=== PATIENT | male | born 1950 | race American Indian/Alaskan Native ===

== ENCOUNTER 2016-08-27 10:24 | Outpatient (CLI) | payer MEDICARE ==
--- NOTE | 2016-08-27 11:34 | XRay Report ---
LUMBOSACRAL SPINE, FIVE VIEWS: HISTORY: Back pain, radiculopathy. Mild osteopenia. No evidence for compression deformity, subluxation or bone lesion. Bridging osteophytes are identified along the left lateral border of L1-2, right lateral border of L3-4 and left lateral border of L4-5. The disc spaces are normal height. Oblique images demonstrate no evidence for pars defect or high-grade neural foraminal narrowing. Mild diffuse facet arthropathy is suspected. IMPRESSION: Osteopenia. Lumbar spondylosis as described. No acute process is appreciated.
--- NOTE | 2016-08-27 11:35 | XRay Report ---
SACRUM AND COCCYX: History: Pain, radiculopathy. Osteopenia is evident. Sacrum and coccyx are intact. No bony destruction or fracture is appreciated. There is suggestion of fusion of the SI joints could be related to spondyloarthropathy. IMPRESSION: Osteopenia. No sacral defect is appreciated.
== END 2016-08-27 10:25 | disposition home or self-care (01) ==
LOC: XRAY 10:24
PROVIDERS: ATTEND Surgery Vascular Surgery
DX: M47.896 Other spondylosis, lumbar region (principal); T82.898A Other specified complication of vascular prosthetic devices, implants and grafts, initial encounter; M25.78 Osteophyte, vertebrae; M85.88 Other specified disorders of bone density and structure, other site
CPT/HCPCS: 72110; 72220

== ENCOUNTER 2019-02-05 08:01 | Emergency (ER) | payer MEDICARE ==
--- NOTE | 2019-02-05 09:06 | Emergency Department Report ---
ED General Adult HPI - General Chief complaint: Medical Clearance Stated complaint: HEMMORRHAGE/DIALYSIS Time Seen by Provider: 02/05/19 08:57 Source: patient, EMS Mode of arrival: Stretcher Limitations: No Limitations - History of Present Illness Initial comments: 68-year-old male presents to ED with bleeding from his dialysis fistula. Patient states that there was a scab present on top of his fistula from where his physician recently removed sutures. Patient states the scab came off this morning in and they were unable to control bleeding at the dialysis center, so pressure dressing was applied and patient transported to the ED. Patient was l ast dialyzed 2 days ago. -: This morning Location: left, upper extremity Severity scale (0 -10): 0 Consistency: constant Improves with: none Worsens with: none Associated Symptoms: denies other symptoms Treatments Prior to Arrival: other (pressure dressing) - Related Data Home Medications Medication Instructions Recorded Confirmed Last Taken Amlodipine Besylate [Norvasc] 10 mg PO DAILY 05/24/15 05/24/15 05/24/15 Azithromycin [Zithromax] 250 mg PO QDAY 05/24/15 05/24/15 05/24/15 B Complex 11/Folic/C/Biot/Zinc 1 each PO QDAY 05/24/15 05/24/15 05/24/15 [Dialyvite with Zinc Tablet] Cyproheptadine [Periactin] 4 mg PO TID 05/24/15 05/24/15 05/24/15 Ferrous Sulfate [Feosol] 325 mg PO BID 05/24/15 05/24/15 05/24/15 Lisinopril [Zestril TAB] 10 mg PO QDAY 05/24/15 05/24/15 05/24/15 Metoprolol [Lopressor] 100 mg PO BID 05/24/15 05/24/15 05/24/15 cloNIDine [Catapres] 0.2 mg PO BID 05/24/15 05/24/15 05/24/15 raNITIdine HCl [Zantac 150 MG TAB] 150 mg PO QDAY 05/24/15 05/24/15 05/24/15 Previous Rx's Medication Instructions Recorded Last Taken Type Benzonatate [Tessalon Perles] 100 mg PO Q8HR PRN #30 capsule 05/24/15 Unknown Rx guaiFENesin DM [Robitussin Dm] 10 ml PO Q6HR PRN #1 bottle 05/24/15 Unknown Rx methylPREDNISolone [Medrol Dose 1 mg PO QAM #1 pack 05/24/15 Unknown Rx Michael] Allergies Allergy/AdvReac Type Severity Reaction Status Date / Time No Known Allergies Allergy Unverified 02/17/13 13:28 ED Review of Systems ROS: Stated complaint: HEMMORRHAGE/DIALYSIS Other details as noted in HPI Comment: All other systems reviewed and negative Respiratory: denies: shortness of breath Cardiovascular: other (reports bleeding from fistula) ED Past Medical Hx - Past Medical History Hx Hypertension: Yes Hx Congestive Heart Failure: Yes Hx Diabetes: Yes Hx Renal Disease: Yes (TTS dialysis) Hx Arthritis: Yes Hx Kidney Stones: No Hx Asthma: No Hx COPD: Yes (home O2 PRN) - Surgical History Hx Pacemaker: No Additional Surgical History: Tonsillectomy. AV Graft in left arm. hernia repair - Social History Smoking Status: Never Smoker - Medications Home Medications: Home Medications Medication Instructions Recorded Confirmed Last Taken Type Amlodipine Besylate [Norvasc] 10 mg PO DAILY 05/24/15 05/24/15 05/24/15 History Azithromycin [Zithromax] 250 mg PO QDAY 05/24/15 05/24/15 05/24/15 History B Complex 11/Folic/C/Biot/Zinc 1 each PO QDAY 05/24/15 05/24/15 05/24/15 History [Dialyvite with Zinc Tablet] Benzonatate [Tessalon Perles] 100 mg PO Q8HR PRN #30 capsule 05/24/15 Unknown Rx Cyproheptadine [Periactin] 4 mg PO TID 05/24/15 05/24/15 05/24/15 History Ferrous Sulfate [Feosol] 325 mg PO BID 05/24/15 05/24/15 05/24/15 History Lisinopril [Zestril TAB] 10 mg PO QDAY 05/24/15 05/24/15 05/24/15 History Metoprolol [Lopressor] 100 mg PO BID 05/24/15 05/24/15 05/24/15 History cloNIDine [Catapres] 0.2 mg PO BID 05/24/15 05/24/15 05/24/15 History guaiFENesin DM [Robitussin Dm] 10 ml PO Q6HR PRN #1 bottle 05/24/15 Unknown Rx methylPREDNISolone [Medrol Dose 1 mg PO QAM #1 pack 05/24/15 Unknown Rx Michael] raNITIdine HCl [Zantac 150 MG TAB] 150 mg PO QDAY 05/24/15 05/24/15 05/24/15 History ED Physical Exam - General Limitations: No Limitations General appearance: alert, in no apparent distress - Head Head exam: Present: atraumatic, normocephalic - Eye Eye exam: Present: normal appearance - ENT ENT exam: Present: mucous membranes moist - Neck Neck exam: Present: normal inspection - Respiratory Respiratory exam: Present: normal lung sounds bilaterally. Absent: respiratory distress - Cardiovascular Cardiovascular Exam: Present: regular rate, normal rhythm, other (dressing removed from AV fistula site on left forearm, no active bleeding present) - GI/Abdominal GI/Abdominal exam: Absent: distended - Extremities Exam Extremities exam: Present: normal inspection - Neurological Exam Neurological exam: Present: alert, oriented X3 - Psychiatric Psychiatric exam: Present: normal affect, normal mood - Skin Skin exam: Present: warm, dry, intact, normal color ED Course Vital Signs 02/05/19 02/05/19 02/05/19 08:10 08:25 08:26 Temperature 97.5 F L Pulse Rate 65 66 Respiratory 18 19 Rate Blood Pressure Blood Pressure 177/76 [Right] O2 Sat by Pulse 98 98 Oximetry 02/05/19 02/05/19 08:31 11:15 Temperature Pulse Rate 65 70 Respiratory 18 20 Rate Blood Pressure 139/75 171/78 Blood Pressure [Right] O2 Sat by Pulse 98 98 Oximetry - Consultations Consultation #1: 02/05/19 10:00 Spoke w/ Dr Bailey. States give Kayexalate PO. Also states call Dr Lugo b/c pt has recurrent bleeding from fistula due to scabs and needs to be replaced. Consultation #2: 02/05/19 11:07 Spoke w/ Dr Martinez. States will see the pt. ED Medical Decision Making - Lab Data Result diagrams: 02/05/19 09:00 - Medical Decision Making 68-year-old male with history of end-stage renal disease presents to ED with b leeding from his AV fistula. Patient reports a scab came off which caused bleeding. Patient did not get dialyzed at all today. Was sent to the ER. Upon ED arrival and my evaluation, the bleeding has stopped. Potassium 5.9. I spoke with Dr. Bailey, patient's dump grounds checker, who states that this is a recurrent problem for the patient, advised that I give kayexalate PO and contact his vascular surgeon. I then spoke with patient's vascular surgeon Dr. Lugo, who would not discuss the patient with me b/c he no longer has privileges at this facility. So I am unsure if he has any plans to address his fistula any further. Per Dr Bailey, I spoke w/ Dr Martinez, [facility] vascualr surgeon on-call for evaluation of the patient's fistula and possible Vas-cath placement. Advised patient that he would be admitted to the hospital for further evaluation of his fistula, and possible placement of Vas-Cath. Patient states that contrary to what his dump grounds checker stated, he has not been having issues with his AV fistula. States this is the first occurrence of bleeding from the site, and it was due to the fact that his vascular surgeon placed sutures which formed a scab. Patient states he does not want to have a Vas-Cath placed. Explained to patient that he may not be able to get dialyzed due to the reported bleeding when trying to access his fistula. Patient states that this is not true, and would rather leave AMA. AMA form signed. Critical care attestation.: If time is entered above; I have spent that time in minutes in the direct care of this critically ill patient, excluding procedure time. ED Disposition Clinical Impression: Hyperkalemia, Complication of AV dialysis fistula Disposition: LEFT AGAINST MED ADVICE Is pt being admited?: No Condition: Stable Referrals: KEYONA VILLAVICENCIO MD [Primary Care Provider] - 3-5 Days Forms: AMA Form Time of Disposition: 11:05
[2019-02-05 09:32] LABS: Calcium 8.6 mg/dL (8.4-10.2)
[2019-02-05 11:27] VITALS: BP 171/78
== END 2019-02-05 11:38 | disposition left against medical advice (07) ==
LOC: ED 08:01
DX: T82.838A Hemorrhage due to vascular prosthetic devices, implants and grafts, initial encounter (principal); E87.5 Hyperkalemia; I13.2 Hypertensive heart and chronic kidney disease with heart failure and with stage 5 chronic kidney disease, or end stage renal disease; E11.22 Type 2 diabetes mellitus with diabetic chronic kidney disease; N18.6 End stage renal disease; I50.9 Heart failure, unspecified; M19.90 Unspecified osteoarthritis, unspecified site; Z99.2 Dependence on renal dialysis; Z79.4 Long term (current) use of insulin; Z79.899 Other long term (current) drug therapy; Y69 Unspecified misadventure during surgical and medical care; Y92.89 Other specified places as the place of occurrence of the external cause
CPT/HCPCS: 36415; 80048; 99284

== ENCOUNTER 2019-07-14 11:17 | Emergency (ER) | payer MEDICARE ==
[2019-07-14] MEDS ORDERED: METOPROLOL TARTRATE 50 MG TAB PO ONE (12:03)
--- NOTE | 2019-07-14 12:03 | Emergency Department Report ---
Chief Complaint: Arrhythmia/Palpitations Stated Complaint: ELEVATED HEARTRATE - HPI History of Present Illness: 69 y/o m on esrd, o2, p/w painless tachycardia after dialysis has no new complaints mild tachycardia on exam labs x ray ekg main side didnt take his toprolol this morning reassess protecting airway at this time lungs clear - Exam Vital Signs: Vital Signs 07/14/19 11:31 Temperature 98.4 F Pulse Rate 106 H Respiratory 20 Rate Blood Pressure 130/63 O2 Sat by Pulse 100 Oximetry MSE screening note: Focused history and physical exam performed. Due to findings the following was ordered: ED Disposition for MSE Condition: Stable
[2019-07-14 12:40] LABS: Hematocrit 22.3 % (35.5-45.6); Mean Corpuscular HGB Conc 31 % (32-34); Mean Corpuscular Volume 101 fl (84-94); Platelet Count 241 K/mm3 (140-440); Red Blood Count 2.21 M/mm3 (3.65-5.03); Red Cell Distribution Width 15.3 % (13.2-15.2)
[2019-07-14 12:51] LABS: INR 0.94 (0.87-1.13)
--- NOTE | 2019-07-14 13:07 | XRay Report ---
CHEST 1 VIEW 07/14/2019 12:50 PM INDICATION / CLINICAL INFORMATION: Tachycardia. ESRD. COMPARISON: One view of the chest from 06/28/2019. FINDINGS: SUPPORT DEVICES: None. HEART / MEDIASTINUM: No significant abnormality. LUNGS / PLEURA: The previously seen interstitial opacities have resolved. No new acute pulmonary abno rmality, pleural effusion or pneumothorax. ADDITIONAL FINDINGS: No significant additional findings. IMPRESSION: Interval resolution of the previously seen pulmonary opacities and mild cardiomegaly. Signer Name: Rey Arriaza MD Signed: 07/14/2019 1:03 PM Workstation Name: [id number]
[2019-07-14 15:14] VITALS: BP 125/57
== END 2019-07-14 15:15 | disposition left against medical advice (07) ==
LOC: ED 11:17
DX: R00.0 Tachycardia, unspecified (principal); Z53.21 Procedure and treatment not carried out due to patient leaving prior to being seen by health care provider; I50.32 Chronic diastolic (congestive) heart failure
CPT/HCPCS: 36415; 71045; 80048; 82550; 83735; 84443; 85027; 85610; 93005; 93010

== ENCOUNTER 2019-09-01 07:01 | Observation (INO) | payer MEDICARE ==
--- NOTE | 2019-09-01 07:40 | Emergency Department Report ---
ED Shortness of Breath HPI - General Chief Complaint: Dyspnea/Respdistress Stated Complaint: FATIGUE, HIGH BLOOD PRESSURE, AND TACYCARDIA Time Seen by Provider: 09/01/19 07:19 Source: patient, EMS Mode of arrival: Stretcher Limitations: No Limitations - History of Present Illness Initial Comments: 69-year-old male with history of CHF, COPD, ESRD, presents to ED with shortness of breath, decrease in mentation. Patient is due for dialysis today. Unclear when he was last dialyzed. Patient is alert. Denies chest pain, cough. MD Complaint: shortness of breath -: This morning Severity: moderate Consistency: constant Improves With: nothing Worsens With: nothing Known History Of: COPD, congestive heart failure Associated Symptoms: denies other symptoms Treatments Prior to Arrival: oxygen - Related Data Home Oxygen Therapy: Yes Home Oxygen Amount: 2 Liters Home Medications Medication Instructions Recorded Confirmed Last Taken lisinopriL [Zestril TAB] 20 mg PO QDAY 05/24/15 07/23/19 05/24/15 raNITIdine HCl [Zantac] 150 mg PO BID 05/24/15 07/23/19 05/24/15 Cinacalcet HCl [Sensipar] 60 mg PO DAILY 07/23/19 07/23/19 Unknown Famotidine [Pepcid] 20 mg PO BID 07/23/19 07/23/19 Unknown Sevelamer Carbonate [Renvela] 1,600 mg PO TID 07/23/19 07/23/19 Unknown Vit B Complx C/Folic Acid/Zinc 1 tab PO DAILY 07/23/19 07/23/19 Unknown [Dialyvite 800-Zinc 50 mg Tab] amLODIPine 10 mg PO DAILY 07/23/19 07/23/19 Unknown cloNIDine [Catapres] 0.1 mg PO TID 07/23/19 07/23/19 Unknown Previous Rx's Medication Instructions Recorded Last Taken Type Pantoprazole [Protonix] 40 mg PO BID #60 tablet 07/26/19 Unknown Rx Allergies Allergy/AdvReac Type Severity Reaction Status Date / Time No Known Allergies Allergy Verified 07/14/19 11:18 ED Review of Systems ROS: Stated complaint: FATIGUE, HIGH BLOOD PRESSURE, AND TACYCARDIA Other details as noted in HPI Comment: All other systems reviewed and negative Constitutional: denies: fever Respiratory: shortness of breath. denies: cough Cardiovascular: denies: chest pain ED Past Medical Hx - Past Medical History Hx Hypertension: Yes (+Cardiac clearance-moderate risk) Hx Heart Attack/AMI: Yes (CE elevation appears c/w NSTEMI type II) Hx Congestive Heart Failure: Yes Hx Diabetes: Yes Hx Renal Disease: Yes (TTS dialysis) Hx Arthritis: Yes Hx Kidney Stones: No Hx Asthma: No Hx COPD: Yes (home O2 PRN) - Surgical History Hx Pacemaker: No Additional Surgical History: Tonsillectomy. AV Graft in left arm. hernia repair - Social History Smoking Status: Never Smoker - Medications Home Medications: Home Medications Medication Instructions Recorded Confirmed Last Taken Type lisinopriL [Zestril TAB] 20 mg PO QDAY 05/24/15 07/23/19 05/24/15 History raNITIdine HCl [Zantac] 150 mg PO BID 05/24/15 07/23/19 05/24/15 History Cinacalcet HCl [Sensipar] 60 mg PO DAILY 07/23/19 07/23/19 Unknown History Famotidine [Pepcid] 20 mg PO BID 07/23/19 07/23/19 Unknown History Sevelamer Carbonate [Renvela] 1,600 mg PO TID 07/23/19 07/23/19 Unknown History Vit B Complx C/Folic Acid/Zinc 1 tab PO DAILY 07/23/19 07/23/19 Unknown History [Dialyvite 800-Zinc 50 mg Tab] amLODIPine 10 mg PO DAILY 07/23/19 07/23/19 Unknown History cloNIDine [Catapres] 0.1 mg PO TID 07/23/19 07/23/19 Unknown History Pantoprazole [Protonix] 40 mg PO BID #60 tablet 07/26/19 Unknown Rx ED Physical Exam - General Limitations: No Limitations General appearance: alert - Head Head exam: Present: atraumatic, normocephalic - Eye Eye exam: Present: normal appearance, EOMI - ENT ENT exam: Present: mucous membranes moist - Neck Neck exam: Present: normal inspection - Respiratory Respiratory exam: Present: respiratory distress, decreased breath sounds, other (tachypneic) - Cardiovascular Cardiovascular Exam: Present: normal rhythm, bradycardia - GI/Abdominal GI/Abdominal exam: Present: soft. Absent: distended, tenderness - Extremities Exam Extremities exam: Present: normal inspection - Neurological Exam Neurological exam: Present: alert, other (alert, slow in answering questions, somewhat confused) - Psychiatric Psychiatric exam: Present: normal affect, normal mood - Skin Skin exam: Present: warm, dry, intact, normal color ED Course Vital Signs 09/01/19 09/01/19 09/01/19 07:10 07:16 07:30 Temperature Pulse Rate 126 H 129 H Respiratory 37 H 29 H Rate Blood Pressure 191/79 191/79 210/81 Blood Pressure [Left] O2 Sat by Pulse 91 Oximetry 09/01/19 09/01/19 09/01/19 07:45 08:00 08:01 Temperature 99.7 F H Pulse Rate 122 H 122 H 124 H Respiratory 36 H 24 22 Rate Blood Pressure 210/81 188/82 Blood Pressure 204/82 [Left] O2 Sat by Pulse 89 100 91 Oximetry 09/01/19 09/01/19 09/01/19 08:15 08:30 08:45 Temperature Pulse Rate Respiratory Rate Blood Pressure 188/82 199/91 199/91 Blood Pressure [Left] O2 Sat by Pulse 96 94 99 Oximetry 09/01/19 09/01/19 09/01/19 09:01 09:15 09:30 Temperature Pulse Rate 122 H 115 H 119 H Respiratory 28 H 36 H 41 H Rate Blood Pressure 199/91 172/72 181/74 Blood Pressure [Left] O2 Sat by Pulse 99 97 97 Oximetry - Consultations Consultation #1: 09/01/19 09:35 Spoke w/ Dr Cui. Will place orders for dialysis. Consultation #2: 09/01/19 09:50 Spoke w/ Dr Capellan. States since pt low risk for COVID, and pt has hx of COPD, and no appearance of CHF on CXR, ok to use PRN nebs. ED Medical Decision Making - Lab Data Result diagrams: 09/01/19 Unknown 09/01/19 Unknown - EKG Data -: EKG Interpreted by Me EKG shows normal: sinus rhythm, axis, intervals, QRS complexes Rate: tachycardia (rate 123) - EKG Data Interpretation: LVH, other (T wave inversions lateral leads; old anterior infarct) - Radiology Data Radiology results: report reviewed, image reviewed - Medical Decision Making - lymphopenia present on past CBC's; low suspicion for COVID given similar prese ntations in the past - WBC's normal - potassium slightly elevated at 5.4 - troponin elevation present, likely due to renal disease; pt denies chest pain, EKG essentially unchanged from previous - off of O2, sats 91%, on his normal 2L NC, sats 100% - radiologist reports possible early infiltrate in left chest; blood cultures drawn, levaquin given - spoke w/ staff assistant, will place orders for dialysis - spoke w/ merchandise stocker, states since low suspicion for COVID, PRN nebs ok - spoke w/ hospitalist, Dr Loco, for admission - Differential Diagnosis COPD, CHF, pneumonia Critical care attestation.: If time is entered above; I have spent that time in minutes in the direct care of this critically ill patient, excluding procedure time. ED Disposition Clinical Impression: COPD exacerbation, Pneumonia, ESRD needing dialysis Disposition: - OP ADMIT IP TO THIS HOSP Is pt being admited?: Yes Condition: Stable Time of Disposition: 09:49
[2019-09-01 08:19] LABS: Calcium 9.6 mg/dL (8.4-10.2)
[2019-09-01 08:27] LABS: Basophils # (Auto) 0.1 K/mm3 (0.0-0.1); Basophils % (Auto) 0.5 % (0.0-1.8); Hematocrit 38.5 % (35.5-45.6); Lymphocytes # (Auto) 0.6 K/mm3 (1.2-5.4); Lymphocytes % (Auto) 5.7 % (13.4-35.0); Mean Corpuscular HGB Conc 31 % (32-34); Mean Corpuscular Volume 97 fl (84-94); Monocytes # (Auto) 0.9 K/mm3 (0.0-0.8); Monocytes % (Auto) 8.4 % (0.0-7.3); Platelet Count 192 K/mm3 (140-440); Red Blood Count 3.99 M/mm3 (3.65-5.03); Red Cell Distribution Width 18.5 % (13.2-15.2)
[2019-09-01 08:36] LABS: Chol/HDL Ratio 2.11 %
--- NOTE | 2019-09-01 08:59 | XRay Report ---
CHEST 1 VIEW INDICATION: MAIN: sob TODAY. COMPARISON: 07/14/2019 FINDINGS: Support devices: None. Heart: Within normal limits. Lungs/Pleura: Underlying COPD and interstitial thickening remains. Mild opacity is seen at the left m id zone laterally. Additional findings: None. IMPRESSION: 1. Persistent underlying COPD and interstitial thickening. 2. Possible early infiltrate left chest. Signer Name: Joselo Keen MD Signed: 09/01/2019 8:55 AM Workstation Name: [email or web address]
[2019-09-01] MEDS ORDERED: ALBUTEROL 2.5 MG/3 ML NEBU IH ONE (09:50)
[2019-09-01] MEDS ORDERED: IPRATROPIUM 0.02% NEBU 2.5 ML IH ONE (09:50)
[2019-09-01] MEDS ORDERED: MAGNESIUM SULFATE 2 GM/50 ML BAG IV ONE ×3 (09:52→10:41)
[2019-09-01] MEDS ORDERED: methylPREDNISolone Sod Succinate 125 MG/2 ML INJ IV ONE (09:52)
--- NOTE | 2019-09-01 10:28 | Consultation ---
History of Present Illness - Reason for Consult Consult date: 09/01/19 end stage renal disease - History of Present Illness Patient is a 69yo with ESRD on HD TTS, COPD who presents to the ED with change in mental status and SOB. Patient reports chronic SOB and cough and cannot appreciate any change or worsening of sx. He denies fever, chills, chest pain Past History Past Medical History: COPD, ESRD, heart failure, hypertension Past Surgical History: Other (AV access surgery) Social history: , lives with family Medications and Allergies Allergies Allergy/AdvReac Type Severity Reaction Status Date / Time No Known Allergies Allergy Verified 07/14/19 11:18 Home Medications Medication Instructions Recorded Confirmed Last Taken Type lisinopriL [Zestril TAB] 20 mg PO QDAY 05/24/15 09/01/19 05/24/15 History raNITIdine HCl [Zantac] 150 mg PO BID 05/24/15 09/01/19 05/24/15 History Cinacalcet HCl [Sensipar] 60 mg PO DAILY 07/23/19 09/01/19 Unknown History Famotidine [Pepcid] 20 mg PO BID 07/23/19 09/01/19 Unknown History Sevelamer Carbonate [Renvela] 1,600 mg PO TID 07/23/19 09/01/19 Unknown History Vit B Complx C/Folic Acid/Zinc 1 tab PO DAILY 07/23/19 09/01/19 Unknown History [Dialyvite 800-Zinc 50 mg Tab] amLODIPine 10 mg PO DAILY 07/23/19 09/01/19 Unknown History cloNIDine [Catapres] 0.1 mg PO TID 07/23/19 09/01/19 Unknown History Pantoprazole [Protonix] 40 mg PO BID #60 tablet 07/26/19 09/01/19 Unknown Rx Budesonide/Formoterol Fumarate 10.2 gm IH TID 09/01/19 09/01/19 Unknown History [Symbicort 160-4.5 Mcg Inhaler] Cyproheptadine [Periactin] 4 mg PO TID 09/01/19 09/01/19 Unknown History Ferric Citrate (Nf) [Auryxia] 210 mg PO TID 09/01/19 09/01/19 Unknown History HYDROcodone/APAP 5-325 [[place] 1 each PO Q6HR PRN 09/01/19 09/01/19 Unknown History 5/325] Metoprolol Tartrate [Lopressor] 100 mg PO QDAY 09/01/19 09/01/19 Unknown History Active Meds: Active Medications Levofloxacin/Dextrose (Levaquin 750mg/150ml) 750 mg in 150 mls @ 100 mls/hr IV ONCE ONE; Protocol Stop: 09/01/19 10:36 Last Admin: 09/01/19 09:35 Dose: 100 mls/hr Documented by: Review of Systems All systems: negative Exam - Vital Signs Vital signs: Vital Signs BP 191/79 09/01/19 07:10 - General Appearance General appearance: well-developed, well-nourished EENT: ATNC Respiratory: Decreased Breath Sounds Heart: regular, S1S2 Gastrointestinal: Present: normal. Absent: tenderness, distended Integumentary: no rash, warm and dry Musculoskeletal: Present: other (no edema) Psychiatric: cooperative Results - Lab Results 09/01/19 Unknown 09/01/19 Unknown Most recent lab results Calcium 9.6 mg/dL (8.4-10.2) 09/01/19 Unknown Assessment and Plan Assessment: * End stage renal disease on HD TTS * Pneumonia * COPD * Altered mental status * Hyperkalemia * Anemia secondary to ESRD * Secondary hyperparathyroidism Plan: * Hemodialysis today * Continue TTS schedule; UF as tolerated * Abx per primary team * Await pending blood cx * Dose medictions for renal function * Renal diet * Epogen TIW prn
[2019-09-01] MEDS ORDERED: methylPREDNISolone Sod Succinate 125 MG/2 ML INJ ONE (10:37)
[2019-09-01] MEDS ORDERED: SODIUM CHLORIDE 0.9% 100 ML IV PRN (11:00)
[2019-09-01 12:58] LABS: Hepatitis B Surface Antigen Non-Reactive (Negative); Hepatitis C Virus Antibody Non-Reactive (NonReactive)
--- NOTE | 2019-09-01 14:18 | History and Physical Report ---
History of Present Illness Date of examination: 09/01/19 Date of admission: 09/01/19 09:51 Chief complaint: Worsening shortness of breath, altered level of consciousness History of present illness: 69-year-old -[place] male patient with significant past medical history of end-stage renal disease on hemodialysis COPD congestive heart failure Hypertension, presented to the emergency room with worsening shortness of breath and altered level of consciousness Patient claims compliance with hemodialysis 3 times a week, and he is due for routine hemodialysis today Patient denies any chest pain or cough At the time of my evaluation is alert and awake oriented Receiving hemodialysis Denies nausea vomiting or abdominal pain Past History Past Medical History: arthritis, CAD, COPD (On home oxygen), dialysis, ESRD, heart failure Past Surgical History: hernia repair, tonsillectomy, Other Social history: other. denies: smoking, alcohol abuse, prescription drug abuse Family history: hypertension Medications and Allergies Allergies Allergy/AdvReac Type Severity Reaction Status Date / Time No Known Allergies Allergy Verified 07/14/19 11:18 Home Medications Medication Instructions Recorded Confirmed Last Taken Type lisinopriL [Zestril TAB] 20 mg PO QDAY 05/24/15 09/01/19 05/24/15 History raNITIdine HCl [Zantac] 150 mg PO BID 05/24/15 09/01/19 05/24/15 History Cinacalcet HCl [Sensipar] 60 mg PO DAILY 07/23/19 09/01/19 Unknown History Famotidine [Pepcid] 20 mg PO BID 07/23/19 09/01/19 Unknown History Sevelamer Carbonate [Renvela] 1,600 mg PO TID 07/23/19 09/01/19 Unknown History Vit B Complx C/Folic Acid/Zinc 1 tab PO DAILY 07/23/19 09/01/19 Unknown History [Dialyvite 800-Zinc 50 mg Tab] amLODIPine 10 mg PO DAILY 07/23/19 09/01/19 Unknown History cloNIDine [Catapres] 0.1 mg PO TID 07/23/19 09/01/19 Unknown History Pantoprazole [Protonix] 40 mg PO BID #60 tablet 07/26/19 09/01/19 Unknown Rx Budesonide/Formoterol Fumarate 10.2 gm IH TID 09/01/19 09/01/19 Unknown History [Symbicort 160-4.5 Mcg Inhaler] Cyproheptadine [Periactin] 4 mg PO TID 09/01/19 09/01/19 Unknown History Ferric Citrate (Nf) [Auryxia] 210 mg PO TID 09/01/19 09/01/19 Unknown History HYDROcodone/APAP 5-325 [[place] 1 each PO Q6HR PRN 09/01/19 09/01/19 Unknown History 5/325] Metoprolol Tartrate [Lopressor] 100 mg PO QDAY 09/01/19 09/01/19 Unknown History Active Meds: Active Medications Sodium Chloride (Nacl 0.9%) 100 mls @ 999 mls/hr IV ALEXANDRA PRN PRN Reason: Hypotension Review of Systems Constitutional: fatigue, weakness, malaise, no weight loss, no weight gain Ears, nose, mouth and throat: no nasal congestion, no nasal discharge Cardiovascular: shortness of breath, dyspnea on exertion, no chest pain, no orthopnea, no palpitations Respiratory: shortness of breath, no cough Gastrointestinal: no abdominal pain, no nausea, no vomiting Genitourinary Male: no dysuria, no hematuria Musculoskeletal: no myalgias, no arthritis Integumentary: no rash, no lesions Neurological: no paralysis, no weakness, no parathesias, no seizures, no syncope Psychiatric: no anxiety, no depression Endocrine: no cold intolerance, no heat intolerance, no polydipsia, no polyuria Hematologic/Lymphatic: no easy bruising, no easy bleeding Allergic/Immunologic: no urticaria, no allergic rhinitis Exam - Constitutional Vitals: Temp Pulse Resp BP Pulse Ox 99.7 F H 107 H 28 H 158/70 95 09/01/19 08:01 09/01/19 14:14 09/01/19 14:14 09/01/19 14:14 09/01/19 14:14 General appearance: Present: mild distress, cachectic, disheveled - EENT Eyes: Present: PERRL, EOM intact - Neck Neck: Present: supple, normal ROM - Respiratory Respiratory effort: normal Respiratory: bilateral: diminished, rales, negative: rhonchi, wheezing - Cardiovascular Rhythm: regular Heart Sounds: Present: S1 & S2 - Extremities Extremities: no ischemia, No edema - Abdominal General gastrointestinal: Present: soft, non-tender, non-distended, normal bowel sounds - Integumentary Integumentary: Present: clear, warm - Musculoskeletal Musculoskeletal: strength equal bilaterally, generalized weakness - Psychiatric Psychiatric: appropriate mood/affect, cooperative - Neurologic Neurologic: moves all extremities Results - Labs CBC & Chem 7: 09/01/19 Unknown 09/01/19 Unknown Labs: Abnormal lab results 09/01/19 09/01/19 09/01/19 Range/Units Unknown Unknown Unknown MCV 97 H (84-94) fl MCHC 31 L (32-34) % RDW 18.5 H (13.2-15.2) % Lymph % (Auto) 5.7 L (13.4-35.0) % [place] % (Auto) 8.4 H (0.0-7.3) % Lymph # 0.6 L (1.2-5.4) K/mm3 [place] # 0.9 H (0.0-0.8) K/mm3 Seg Neutrophils % 85.4 H (40.0-70.0) % Seg Neutrophils # 9.4 H (1.8-7.7) K/mm3 Sodium 134 L (137-145) mmol/L Potassium 5.4 H (3.6-5.0) mmol/L Chloride 93.7 L (98-107) mmol/L Carbon Dioxide 19 L (22-30) mmol/L BUN 53 H (9-20) mg/dL Creatinine 11.9 H (0.8-1.5) mg/dL Troponin T 0.157 H* (0.00-0.029) ng/mL NT-Pro-B Natriuret Pep 95673 H (0-900) pg/mL HDL Cholesterol 63 H (40-59) mg/dL Assessment and Plan --Acute metabolic encephalopathy; present on admission Now completely resolved, patient is alert and awake Responding appropriately, supportive care --End-stage renal disease; on hemodialysis Nephrology following, HD per schedule TTS --Hypertension; moderate control Continue current antihypertensives and PRN medications --Anemia of chronic disease ESRD; Closely monitor H&H and transfuse as needed Procrit during dialysis --H/O COPD; on home oxygen Oxygen titrate O2 sats to more than 90% Nebulizers and supportive care --History of congestive heart failure; EF 45%, continue heart failure medications --Non-ST elevation [place] type II Follow clinically Consult cardiology if needed --Severe malnutrition; nutrition supplements Supportive care --DVT prophylaxis; Heparin renal dose Monitor closely and adjust the management as needed
[2019-09-01] MEDS ORDERED: SODIUM CHLORIDE*PRIMING MACHINE ONLY FOR DIALYSIS MC ONE (15:01)
--- NOTE | 2019-09-02 08:56 | Consultation ---
History of Present Illness Consult date: 09/02/19 Requesting physician: MARIEL MANZANO Reason for consult: dyspnea History of present illness: 69 y/o male with known CHF, COPD and ESRD on HD with questionable compliance at times presents to the ED with shortness of breath on yesterday. I spoke with the ED physician who was concerned about using neb treatments if needed but given the history, I did not feel it was wrong to give the nebs. It appears that patient underwent dialysis on yesterday and is now back on 2 liters [place] which is his home flow rate. REmainder of the review is negative. Past History Past Medical History: COPD, ESRD, heart failure, hypertension Past Surgical History: Other (AV access surgery) Social history: , lives with family Family history: hypertension Medications and Allergies Allergies Allergy/AdvReac Type Severity Reaction Status Date / Time No Known Allergies Allergy Verified 07/14/19 11:18 Home Medications Medication Instructions Recorded Confirmed Last Taken Type lisinopriL [Zestril TAB] 20 mg PO QDAY 05/24/15 09/01/19 05/24/15 History raNITIdine HCl [Zantac] 150 mg PO BID 05/24/15 09/01/19 05/24/15 History Cinacalcet HCl [Sensipar] 60 mg PO DAILY 07/23/19 09/01/19 Unknown History Famotidine [Pepcid] 20 mg PO BID 07/23/19 09/01/19 Unknown History Sevelamer Carbonate [Renvela] 1,600 mg PO TID 07/23/19 09/01/19 Unknown History Vit B Complx C/Folic Acid/Zinc 1 tab PO DAILY 07/23/19 09/01/19 Unknown History [Dialyvite 800-Zinc 50 mg Tab] amLODIPine 10 mg PO DAILY 07/23/19 09/01/19 Unknown History cloNIDine [Catapres] 0.1 mg PO TID 07/23/19 09/01/19 Unknown History Pantoprazole [Protonix] 40 mg PO BID #60 tablet 07/26/19 09/01/19 Unknown Rx Budesonide/Formoterol Fumarate 10.2 gm IH TID 09/01/19 09/01/19 Unknown History [Symbicort 160-4.5 Mcg Inhaler] Cyproheptadine [Periactin] 4 mg PO TID 09/01/19 09/01/19 Unknown History Ferric Citrate (Nf) [Auryxia] 210 mg PO TID 09/01/19 09/01/19 Unknown History HYDROcodone/APAP 5-325 [[place] 1 each PO Q6HR PRN 09/01/19 09/01/19 Unknown History 5/325] Metoprolol Tartrate [Lopressor] 100 mg PO QDAY 09/01/19 09/01/19 Unknown History Active Meds: Active Medications Sodium Chloride (Nacl 0.9%) 100 mls @ 999 mls/hr IV ALEXANDRA PRN PRN Reason: Hypotension Review of Systems All systems: negative Physical Examination Vital signs: Vital Signs BP 191/79 09/01/19 07:10 General appearance: no acute distress, alert Eyes: non-icteric ENT: oropharynx moist Neck: supple Effort: normal Ascultation: Bilateral: clear, diminished breath sounds Results - Laboratory Findings CBC and BMP: 09/01/19 Unknown 09/01/19 Unknown Abnormal lab findings: Abnormal Labs 09/01/19 09/01/19 09/01/19 Unknown Unknown Unknown MCV 97 H MCHC 31 L RDW 18.5 H Lymph % (Auto) 5.7 L [place] % (Auto) 8.4 H Lymph # 0.6 L [place] # 0.9 H Seg Neutrophils % 85.4 H Seg Neutrophils # 9.4 H Sodium 134 L Potassium 5.4 H Chloride 93.7 L Carbon Dioxide 19 L BUN 53 H Creatinine 11.9 H Troponin T 0.157 H* NT-Pro-B Natriuret Pep 94836 H HDL Cholesterol 63 H - Diagnostic Findings Chest x-ray: image reviewed Assessment and Plan 69 y/o male with shortness of breath most likely related to volume overload despite essentially negative CXR on admission. 1. No current indication for systemic steroids 2. Resume home COPD regimen. Will order pulmicort and brovana here 3. Pulm erwin appears stable. Suggest discharge to home
[2019-09-02 11:25] VITALS: BP 142/69
--- NOTE | 2019-09-02 12:04 | Progress Note ---
Assessment and Plan Assessment: * End stage renal disease on HD TTS * Pneumonia * COPD * Altered mental status * Hyperkalemia * Anemia secondary to ESRD * Secondary hyperparathyroidism Plan: * Hemodialysis TTS schedule; UF as tolerated * Abx per primary team * Await pending blood cx * Dose medictions for renal function * Renal diet * Epogen TIW prn Subjective Date of service: 09/02/19 Principal diagnosis: esrd Interval history: resting in bed today Objective - Exam Narrative Exam: General appearance: well-developed, well-nourished EENT: ATNC Respiratory: Decreased Breath Sounds Heart: regular, S1S2 Gastrointestinal: Present: normal. Absent: tenderness, distended Integumentary: no rash, warm and dry Musculoskeletal: Present: other (no edema) Psychiatric: cooperative - Vital Signs Vital signs: Vital Signs - 12hr 09/02/19 09/02/19 09/02/19 00:20 05:02 05:50 Temperature 98.0 F 98.7 F Pulse Rate 101 H 98 H 100 H Respiratory 20 20 Rate Blood Pressure 147/70 140/72 O2 Sat by Pulse 97 99 Oximetry 09/02/19 09/02/19 08:05 11:21 Temperature 98.0 F 98.3 F Pulse Rate 116 H 98 H Respiratory 18 18 Rate Blood Pressure 139/71 142/69 O2 Sat by Pulse 94 98 Oximetry - Lab 09/01/19 Unknown 09/01/19 Unknown Most recent lab results Calcium 9.6 mg/dL (8.4-10.2) 09/01/19 Unknown Medications & Allergies - Medications Allergies/Adverse Reactions: Allergies No Known Allergies Allergy (Verified 07/14/19 11:18) Home Medications: Home Medications Medication Instructions Recorded Confirmed Last Taken Type lisinopriL [Zestril TAB] 20 mg PO QDAY 05/24/15 09/01/19 05/24/15 History raNITIdine HCl [Zantac] 150 mg PO BID 05/24/15 09/01/19 05/24/15 History Cinacalcet HCl [Sensipar] 60 mg PO DAILY 07/23/19 09/01/19 Unknown History Famotidine [Pepcid] 20 mg PO BID 07/23/19 09/01/19 Unknown History Sevelamer Carbonate [Renvela] 1,600 mg PO TID 07/23/19 09/01/19 Unknown History Vit B Complx C/Folic Acid/Zinc 1 tab PO DAILY 07/23/19 09/01/19 Unknown History [Dialyvite 800-Zinc 50 mg Tab] amLODIPine 10 mg PO DAILY 07/23/19 09/01/19 Unknown History cloNIDine [Catapres] 0.1 mg PO TID 07/23/19 09/01/19 Unknown History Pantoprazole [Protonix] 40 mg PO BID #60 tablet 07/26/19 09/01/19 Unknown Rx Budesonide/Formoterol Fumarate 10.2 gm IH TID 09/01/19 09/01/19 Unknown History [Symbicort 160-4.5 Mcg Inhaler] Cyproheptadine [Periactin] 4 mg PO TID 09/01/19 09/01/19 Unknown History Ferric Citrate (Nf) [Auryxia] 210 mg PO TID 09/01/19 09/01/19 Unknown History HYDROcodone/APAP 5-325 [[place] 1 each PO Q6HR PRN 09/01/19 09/01/19 Unknown History 5/325] Metoprolol Tartrate [Lopressor] 100 mg PO QDAY 09/01/19 09/01/19 Unknown History Active Medications: Generic Name Dose Route Start Last Admin Trade Name Freq PRN Reason Stop Dose Admin Sodium Chloride 100 mls @ 999 mls/hr 09/01/19 11:00 Nacl 0.9% IV ALEXANDRA PRN Hypotension
--- NOTE | 2019-09-02 15:32 | Discharge Summary ---
Providers - Providers Date of Admission: 09/01/19 09:51 Date of discharge: 09/02/19 Attending physician: KEITH DICKINSON 09/01/19 09:34 Consult to Physician [CONS] Stat Comment: Consulting Provider: ALVERTO WU Physician Instructions: Reason For Exam: esrd 09/01/19 09:48 Consult to Physician [CONS] Stat Comment: Consulting Provider: ALYSIA FARNSWORTH Physician Instructions: Reason For Exam: copd Primary care physician: [facility] Hospitalization Condition: Stable Hospital course: 69-year-old -[place] male patient with significant past medical history of end-stage renal disease on hemodialysis COPD congestive heart failure Hypertension, presented to the emergency room with worsening shortness of breath and altered level of consciousness Patient claims compliance with hemodialysis 3 times a week, and he is due for routine hemodialysis today At the time of discharge patient's vital signs are stable; Temperature 98.3, pulse 93/min regular Blood pressure 142/69, respiratory rate 18/min O2 sats 98% on 2 L of oxygen[patient has home oxygen] --Acute metabolic encephalopathy; present on admission Now completely resolved, patient is alert and awake Responding appropriately, supportive care --End-stage renal disease; on hemodialysis Nephrology following, HD per schedule TTS --Hypertension; moderate control Continue current antihypertensives and PRN medications --Anemia of chronic disease ESRD; Closely monitor H&H and transfuse as needed Procrit during dialysis --H/O COPD; on home oxygen Oxygen titrate O2 sats to more than 90% Nebulizers and supportive care --History of congestive heart failure; EF 45%, continue heart failure medications --Non-ST elevation [place] type II Follow clinically Consult cardiology if needed --Severe malnutrition; nutrition supplements Supportive care --DVT prophylaxis; Heparin renal dose Monitor closely and adjust the management as needed Disposition: DC-01 TO HOME OR SELFCARE Time spent for discharge: 32 min Core Measure Documentation - Palliative Care Palliative Care/ Comfort Measures: Not Applicable - Core Measures Any of the following diagnoses?: none Exam - Constitutional Vitals: Temp Pulse Resp BP Pulse Ox 98.3 F 99 H 18 142/69 98 09/02/19 11:21 09/02/19 14:00 09/02/19 11:21 09/02/19 11:21 09/02/19 11:21 General appearance: Present: no acute distress, well-nourished - EENT Eyes: Present: PERRL, EOM intact - Neck Neck: Present: supple, normal ROM - Respiratory Respiratory effort: normal Respiratory: bilateral: diminished, wheezing, negative: rales, rhonchi - Cardiovascular Rhythm: regular Heart Sounds: Present: S1 & S2 - Extremities Extremities: no ischemia, No edema - Abdominal General gastrointestinal: Present: soft, non-tender, non-distended, normal bowel sounds - Integumentary Integumentary: Present: clear, warm - Musculoskeletal Musculoskeletal: strength equal bilaterally, generalized weakness - Psychiatric Psychiatric: appropriate mood/affect, cooperative - Neurologic Neurologic: moves all extremities Plan Activity: advance as tolerated, fall precautions Additional Instructions: Continue all your home medications. No new prescriptions. Follow renal/HD per schedule. If you have severe shortness of breath or cough contact MD or go to emergency room. Continue home oxygen as before Follow up with: PRIMARY CARE, [Primary Care Provider] - 3-5 Days
== END 2019-09-02 17:23 | disposition home or self-care (01) ==
LOC: ED 07:01 → 4A 09:51 → INTOOBSV 09:51 → 4A 14:33
PROVIDERS: ADMIT Internal Medicine; ATTEND Internal Medicine
DX: G93.41 Metabolic encephalopathy (principal); I13.2 Hypertensive heart and chronic kidney disease with heart failure and with stage 5 chronic kidney disease, or end stage renal disease; N18.6 End stage renal disease; I50.9 Heart failure, unspecified; D63.1 Anemia in chronic kidney disease; I21.A1 Myocardial infarction type 2; E43 Unspecified severe protein-calorie malnutrition; I25.10 Atherosclerotic heart disease of native coronary artery without angina pectoris; M19.90 Unspecified osteoarthritis, unspecified site; J44.0 Chronic obstructive pulmonary disease with (acute) lower respiratory infection; J18.9 Pneumonia, unspecified organism; I25.2 Old myocardial infarction; J44.1 Chronic obstructive pulmonary disease with (acute) exacerbation; Z99.2 Dependence on renal dialysis; Z99.81 Dependence on supplemental oxygen; Z79.51 Long term (current) use of inhaled steroids; Z79.899 Other long term (current) drug therapy
CPT/HCPCS: 36415; 71045; 80048; 80061; 80074; 83880; 84484; 85025; 87040; 93005; 93010; 94640; 96365; 96368; 96375; 99285; G0257; G0378; J1956; J2930; J3475; J7030

== ENCOUNTER 2020-04-24 19:33 | Emergency (ER) | payer MEDICARE ==
--- NOTE | 2020-04-25 00:38 | Emergency Department Report ---
ED General Adult HPI - General Chief complaint: Weakness Stated complaint: MUSCLE SPASMS Time Seen by Provider: 04/25/20 00:11 Source: EMS Mode of arrival: Wheelchair Limitations: No Limitations - History of Present Illness Initial comments: 70-year-old male, history of hypertension, ESRD (last dialyzed today), presents to ED with jerking activity in all 4 extremities. Patient states this occurs whenever he tries to lift his legs or hold onto something with his hands. Patient denies any falls. He denies any headache, fever, cough, chest pain, nadine rtness of breath. Patient states the last time this happened he was found to be anemic and required blood transfusions. Patient denies any GI bleed at that time, and denies any current episodes of blood in his stool. -: days(s) (1) Location: left, right, upper extremity, lower extremity Consistency: intermittent Improves with: rest Worsens with: movement Associated Symptoms: weakness. denies: chest pain, cough, fever/chills, headaches, nausea/vomiting, shortness of breath - Related Data Home Medications Medication Instructions Recorded Confirmed Last Taken lisinopriL [Zestril TAB] 20 mg PO QDAY 05/24/15 09/01/19 05/24/15 raNITIdine HCl [Zantac] 150 mg PO BID 05/24/15 09/01/19 05/24/15 Cinacalcet HCl [Sensipar] 60 mg PO DAILY 07/23/19 09/01/19 Unknown Famotidine [Pepcid] 20 mg PO BID 07/23/19 09/01/19 Unknown Sevelamer Carbonate [Renvela] 1,600 mg PO TID 07/23/19 09/01/19 Unknown Vit B Complx C/Folic Acid/Zinc 1 tab PO DAILY 07/23/19 09/01/19 Unknown [Dialyvite 800-Zinc 50 mg Tab] amLODIPine 10 mg PO DAILY 07/23/19 09/01/19 Unknown cloNIDine [Catapres] 0.1 mg PO TID 07/23/19 09/01/19 Unknown Budesonide/Formoterol Fumarate 10.2 gm IH TID 09/01/19 09/01/19 Unknown [Symbicort 160-4.5 Mcg Inhaler] Cyproheptadine [Periactin] 4 mg PO TID 09/01/19 09/01/19 Unknown Ferric Citrate (Nf) [Auryxia] 210 mg PO TID 09/01/19 09/01/19 Unknown HYDROcodone/APAP 5-325 [[place] 1 each PO Q6HR PRN 09/01/19 09/01/19 Unknown 5-325 mg TAB] Metoprolol Tartrate [Lopressor] 100 mg PO QDAY 09/01/19 09/01/19 Unknown Previous Rx's Medication Instructions Recorded Last Taken Type Pantoprazole [Protonix TAB] 40 mg PO BID #60 tablet 07/26/19 Unknown Rx Allergies Allergy/AdvReac Type Severity Reaction Status Date / Time No Known Allergies Allergy Verified 07/14/19 11:18 ED Review of Systems ROS: Stated complaint: MUSCLE SPASMS Other details as noted in HPI Comment: All other systems reviewed and negative Constitutional: weakness. denies: chills, fever Respiratory: denies: cough, shortness of breath Cardiovascular: denies: chest pain Gastrointestinal: denies: vomiting, diarrhea, melena, hematochezia Neurological: other (Patient reports tremors/ jerking). denies: headache ED Past Medical Hx - Past Medical History Hx Hypertension: Yes (+Cardiac clearance-moderate risk) Hx Heart Attack/AMI: Yes (CE elevation appears c/w NSTEMI type II) Hx Congestive Heart Failure: Yes Hx Diabetes: Yes Hx Renal Disease: Yes (TTS dialysis) Hx Arthritis: Yes Hx Kidney Stones: No Hx Asthma: No Hx COPD: Yes (home O2 PRN) - Surgical History Hx Pacemaker: No Additional Surgical History: Tonsillectomy. AV Graft in left arm. hernia repair - Social History Smoking Status: Never Smoker Substance Use Type: None - Medications Home Medications: Home Medications Medication Instructions Recorded Confirmed Last Taken Type lisinopriL [Zestril TAB] 20 mg PO QDAY 05/24/15 09/01/19 05/24/15 History raNITIdine HCl [Zantac] 150 mg PO BID 05/24/15 09/01/19 05/24/15 History Cinacalcet HCl [Sensipar] 60 mg PO DAILY 07/23/19 09/01/19 Unknown History Famotidine [Pepcid] 20 mg PO BID 07/23/19 09/01/19 Unknown History Sevelamer Carbonate [Renvela] 1,600 mg PO TID 07/23/19 09/01/19 Unknown History Vit B Complx C/Folic Acid/Zinc 1 tab PO DAILY 07/23/19 09/01/19 Unknown History [Dialyvite 800-Zinc 50 mg Tab] amLODIPine 10 mg PO DAILY 07/23/19 09/01/19 Unknown History cloNIDine [Catapres] 0.1 mg PO TID 07/23/19 09/01/19 Unknown History Pantoprazole [Protonix TAB] 40 mg PO BID #60 tablet 07/26/19 09/01/19 Unknown Rx Budesonide/Formoterol Fumarate 10.2 gm IH TID 09/01/19 09/01/19 Unknown History [Symbicort 160-4.5 Mcg Inhaler] Cyproheptadine [Periactin] 4 mg PO TID 09/01/19 09/01/19 Unknown History Ferric Citrate (Nf) [Auryxia] 210 mg PO TID 09/01/19 09/01/19 Unknown History HYDROcodone/APAP 5-325 [[place] 1 each PO Q6HR PRN 09/01/19 09/01/19 Unknown History 5-325 mg TAB] Metoprolol Tartrate [Lopressor] 100 mg PO QDAY 09/01/19 09/01/19 Unknown History ED Physical Exam - General Limitations: No Limitations General appearance: alert, in no apparent distress - Head Head exam: Present: atraumatic, normocephalic - Eye Eye exam: Present: normal appearance, EOMI - ENT ENT exam: Present: mucous membranes moist - Neck Neck exam: Present: normal inspection - Respiratory Respiratory exam: Present: normal lung sounds bilaterally. Absent: respiratory distress - Cardiovascular Cardiovascular Exam: Present: regular rate, normal rhythm - GI/Abdominal GI/Abdominal exam: Present: soft. Absent: distended, tenderness - Extremities Exam Extremities exam: Present: normal inspection - Neurological Exam Neurological exam: Present: alert, oriented X3, other (No obvious tremors on exam). Absent: motor sensory deficit - Psychiatric Psychiatric exam: Present: normal affect, normal mood - Skin Skin exam: Present: warm, dry, intact, normal color ED Course Vital Signs 04/24/20 04/24/20 04/25/20 20:40 20:41 00:18 Temperature Pulse Rate 82 81 Respiratory 27 H Rate Blood Pressure Blood Pressure [Left] O2 Sat by Pulse 98 98 Oximetry 04/25/20 04/25/20 04/25/20 00:20 00:34 02:31 Temperature 97.5 F L Pulse Rate 80 92 H Respiratory 29 H 20 Rate Blood Pressure 182/67 Blood Pressure 177/74 [Left] O2 Sat by Pulse 100 100 Oximetry ED Medical Decision Making - Lab Data Result diagrams: 04/25/20 01:02 04/25/20 01:02 - Medical Decision Making Jerking movements are not right-sided, as documented by the triage nurse. Patient reports he is experiencing these jerking movements in all 4 extremities Critical care attestation.: If time is entered above; I have spent that time in minutes in the direct care of this critically ill patient, excluding procedure time. ED Disposition Clinical Impression: Jerking movements of extremities Disposition: TO HOME OR SELFCARE Is pt being admited?: No Condition: Stable Instructions: Spasticity, Muscle Cramps and Spasms Referrals: PRIMARY MD CARLYN [Primary Care Provider] - 3-5 Days VIRGINIA GURROLA MD [Referring] - 3-5 Days Time of Disposition: 02:38
[2020-04-25 01:36] LABS: Hematocrit 35.5 % (35.5-45.6); Hemoglobin 10.9 gm/dl (11.8-15.2); Mean Corpuscular HGB Conc 31 % (32-34); Mean Corpuscular Volume 108 fl (84-94); Platelet Count 199 K/mm3 (140-440); Red Blood Count 3.28 M/mm3 (3.65-5.03); Red Cell Distribution Width 15.1 % (13.2-15.2)
[2020-04-25 01:37] LABS: Calcium 8.4 mg/dL (8.4-10.2)
[2020-04-25 01:39] LABS: Basophils % (Auto) 0.9 % (0.0-1.8); Eosinophils # (Auto) 0.1 K/mm3 (0.0-0.4); Eosinophils % (Auto) 2.5 % (0.0-4.3); Lymphocytes # (Auto) 0.7 K/mm3 (1.2-5.4); Lymphocytes % (Auto) 12.1 % (13.4-35.0); Monocytes # (Auto) 0.6 K/mm3 (0.0-0.8); Monocytes % (Auto) 11.7 % (0.0-7.3)
[2020-04-25 02:32] VITALS: BP 177/74
== END 2020-04-25 04:00 | disposition home or self-care (01) ==
LOC: ED 19:33
DX: R25.8 Other abnormal involuntary movements (principal); I11.0 Hypertensive heart disease with heart failure; I50.9 Heart failure, unspecified; E11.9 Type 2 diabetes mellitus without complications; I25.2 Old myocardial infarction; M19.90 Unspecified osteoarthritis, unspecified site; J44.9 Chronic obstructive pulmonary disease, unspecified; Z79.899 Other long term (current) drug therapy
CPT/HCPCS: 36415; 80048; 85025; 99283

== ENCOUNTER 2020-04-25 08:52 | Inpatient (IN) | payer MEDICARE ==
--- NOTE | 2020-04-25 10:16 | Emergency Department Report ---
ED General Adult HPI - General Chief complaint: Weakness Stated complaint: SPASMS CANNOT WALK PUI?: No Time Seen by Provider: 04/25/20 09:57 Source: patient, family, RN notes reviewed, old records reviewed Mode of arrival: Wheelchair Limitations: Altered Mental Status, Physical Limitation - History of Present Illness Initial comments: The patient was evaluated in the emergency department for symptoms described in the history of present illness. He/she was evaluated in the context of the global COVID-19 pandemic, which necessitated consideration that the patient might be at risk for infection with the virus that causes COVID-19. Institutional protocols and algorithms that pertain to the evaluation of patients at risk for COVID-19 are in a state of rapid change based on information released by regulatory bodies including the CDC and federal and state organizations. These policies and algorithms were followed during the patient's care in the emergency department. Please note that these policies, procedures and recommendations changed on a rapid basis. Nephrology: Dr. Narayan Pulmonology: Dr. Wright Past medical history: End-stage renal disease, on hemodialysis, Thursday, , Thursday, last dialysis session was yesterday, Thursday. COPD, on home oxygen, as needed, type II NSTEMI, left upper extremity graft, arthritis This patient is a pleasant 70-year-old gentleman who was brought to the hospital with his , who provides most of the history. Chief complaint is weakness, change in mentation, and speech disturbance. Patient's last known well time was approximately 2 nights ago. His noticed the symptoms yesterday. She reports that the patient is typically ambulatory without need for assistance, and typically can speak and enunciate clearly. There is no complaint of headache, neck pain, chest pain, abdominal pain, vomiting, diaphoresis, hematemesis or bright red blood per rectum. No loss of taste, no loss of smell, no exposure to Covid individuals. His endorses that the patient has had a dramatic change in his mental status, and functional status. The patient himself describes generalized weakness, and "my limbs are weak." Patient and family also describe nonspecific intermittent jerking motions, which I personally did not witness. Patient's indicates no change in his outpatient prescription medications. Weakness, change in mental status, and speech disturbance constant since at least yesterday morning, do not radiate anywhere, do not have exacerbating or relieving factors. Jerking movements are intermittent, painless, do not radiate anywhere, do not have exacerbating or relieving factors, as per patient's . -: days(s) Severity scale (0 -10): 0 Consistency: intermittent Improves with: none Worsens with: none - Related Data Home Medications Medication Instructions Recorded Confirmed Last Taken lisinopriL [Zestril TAB] 20 mg PO QDAY 05/24/15 09/01/19 05/24/15 raNITIdine HCl [Zantac] 150 mg PO BID 05/24/15 09/01/19 05/24/15 Cinacalcet HCl [Sensipar] 60 mg PO DAILY 07/23/19 09/01/19 Unknown Famotidine [Pepcid] 20 mg PO BID 07/23/19 09/01/19 Unknown Sevelamer Carbonate [Renvela] 1,600 mg PO TID 07/23/19 09/01/19 Unknown Vit B Complx C/Folic Acid/Zinc 1 tab PO DAILY 07/23/19 09/01/19 Unknown [Dialyvite 800-Zinc 50 mg Tab] amLODIPine 10 mg PO DAILY 07/23/19 09/01/19 Unknown cloNIDine [Catapres] 0.1 mg PO TID 07/23/19 09/01/19 Unknown Budesonide/Formoterol Fumarate 10.2 gm IH TID 09/01/19 09/01/19 Unknown [Symbicort 160-4.5 Mcg Inhaler] Cyproheptadine [Periactin] 4 mg PO TID 09/01/19 09/01/19 Unknown Ferric Citrate (Nf) [Auryxia] 210 mg PO TID 09/01/19 09/01/19 Unknown HYDROcodone/APAP 5-325 [[place] 1 each PO Q6HR PRN 09/01/19 09/01/19 Unknown 5-325 mg TAB] Metoprolol Tartrate [Lopressor] 100 mg PO QDAY 09/01/19 09/01/19 Unknown Previous Rx's Medication Instructions Recorded Last Taken Type Pantoprazole [Protonix TAB] 40 mg PO BID #60 tablet 07/26/19 Unknown Rx Allergies Allergy/AdvReac Type Severity Reaction Status Date / Time No Known Allergies Allergy Verified 07/14/19 11:18 ED Review of Systems ROS: Stated complaint: SPASMS CANNOT WALK Other details as noted in HPI Constitutional: malaise, weakness. denies: fever Eyes: denies: eye discharge ENT: congestion Respiratory: cough (Chronic cough, chronic shortness of breath). denies: wheezing Cardiovascular: denies: chest pain Gastrointestinal: denies: abdominal pain, nausea, vomiting, constipation, hematemesis, melena, hematochezia Genitourinary: as per HPI (Patient does not produce urine) Musculoskeletal: other (Myoclonic jerking) Skin: denies: lesions Neurological: weakness, confusion Hematological/Lymphatic: denies: easy bleeding ED Past Medical Hx - Past Medical History Previous Medical History?: Yes Hx Hypertension: Yes (+Cardiac clearance-moderate risk) Hx Heart Attack/AMI: Yes (CE elevation appears c/w NSTEMI type II) Hx Congestive Heart Failure: Yes Hx Diabetes: Yes Hx Renal Disease: Yes (TTS dialysis) Hx Arthritis: Yes Hx Kidney Stones: No Hx Asthma: No Hx COPD: Yes (home O2 PRN) - Surgical History Hx Pacemaker: No Additional Surgical History: Tonsillectomy. AV Graft in left arm. hernia repair - Social History Smoking Status: Never Smoker Substance Use Type: None - Medications Home Medications: Home Medications Medication Instructions Recorded Confirmed Last Taken Type lisinopriL [Zestril TAB] 20 mg PO QDAY 05/24/15 09/01/19 05/24/15 History raNITIdine HCl [Zantac] 150 mg PO BID 05/24/15 09/01/19 05/24/15 History Cinacalcet HCl [Sensipar] 60 mg PO DAILY 07/23/19 09/01/19 Unknown History Famotidine [Pepcid] 20 mg PO BID 07/23/19 09/01/19 Unknown History Sevelamer Carbonate [Renvela] 1,600 mg PO TID 07/23/19 09/01/19 Unknown History Vit B Complx C/Folic Acid/Zinc 1 tab PO DAILY 07/23/19 09/01/19 Unknown History [Dialyvite 800-Zinc 50 mg Tab] amLODIPine 10 mg PO DAILY 07/23/19 09/01/19 Unknown History cloNIDine [Catapres] 0.1 mg PO TID 07/23/19 09/01/19 Unknown History Pantoprazole [Protonix TAB] 40 mg PO BID #60 tablet 07/26/19 09/01/19 Unknown Rx Budesonide/Formoterol Fumarate 10.2 gm IH TID 09/01/19 09/01/19 Unknown History [Symbicort 160-4.5 Mcg Inhaler] Cyproheptadine [Periactin] 4 mg PO TID 09/01/19 09/01/19 Unknown History Ferric Citrate (Nf) [Auryxia] 210 mg PO TID 09/01/19 09/01/19 Unknown History HYDROcodone/APAP 5-325 [[place] 1 each PO Q6HR PRN 09/01/19 09/01/19 Unknown History 5-325 mg TAB] Metoprolol Tartrate [Lopressor] 100 mg PO QDAY 09/01/19 09/01/19 Unknown History ED Physical Exam - General Limitations: Altered Mental Status, Physical Limitation General appearance: in no apparent distress - Head Head exam: Present: atraumatic, normocephalic - Eye Eye exam: Present: normal appearance, EOMI. Absent: nystagmus - ENT ENT exam: Present: normal exam, normal orophraynx, mucous membranes moist, normal external ear exam - Neck Neck exam: Present: normal inspection, full ROM. Absent: tenderness, meningismus - Respiratory Respiratory exam: Present: decreased breath sounds. Absent: respiratory distress, wheezes, rales, rhonchi, stridor - Cardiovascular Cardiovascular Exam: Present: regular rate, normal rhythm, normal heart sounds. Absent: bradycardia, tachycardia, irregular rhythm, systolic murmur, diastolic murmur, rubs, gallop - GI/Abdominal GI/Abdominal exam: Present: soft. Absent: distended, tenderness, guarding, rebound, rigid, pulsatile mass - Rectal Rectal exam: Present: deferred - Extremities Exam Extremities exam: Present: full ROM, pedal edema, other (2+ pulses noted in the bilateral upper and lower extremities. There is no palpable cord. negative Homans sign. Muscular compartments are soft. The pelvis is stable.). Absent: normal inspection (Chronic venous stasis changes noted in the bilateral lower extremities. 1+ edema in the bilateral lower extremities. Left upper extremity graft, without redness, pus or streaking.), calf tenderness - Back Exam Back exam: Present: normal inspection, full ROM. Absent: tenderness, CVA tenderness (R), CVA tenderness (L), paraspinal tenderness, vertebral tenderness - Neurological Exam Neurological exam: Present: alert (Patient is alert to name, location, and is able to identify his by name. He is able to recall 3 out of 3 words at 0 minutes, but cannot recall any at 5 minutes.), other (No facial droop. Tongue midline. Extraocular movements intact bilaterally. Facial sensation intact to light touch in V1, V2, V3 distribution bilaterally. 5 and a 5 strength in 4 extremities. Sensation intact to light touch in 4 extremities.). Absent: normal gait (Patient is not able to walk) - Psychiatric Psychiatric exam: Present: normal affect, normal mood, anxious - Skin Skin exam: Present: warm, dry, intact, normal color. Absent: rash ED Course Vital Signs 04/25/20 04/25/20 04/25/20 08:58 09:34 12:53 Temperature 97.8 F Pulse Rate 90 88 Respiratory 18 16 Rate Blood Pressure 150/76 169/64 [Right] O2 Sat by Pulse 84 96 100 Oximetry - Reevaluation(s) Reevaluation #1: 04/25/20 10:32 Differential diagnosis, including but not limited to: Pneumonia, bacteremia, viremia, stroke, azotemia, uremia, toxic encephalopathy, metabolic encephalopathy, COPD Assessment and plan: 70-year-old gentleman, who is currently afebrile with reassuring vital signs, currently on supplemental oxygen. He initially had an O2 sat of 84% upon arrival to this department. However, it appears that he did not arrive with his home oxygen. He is alert to name, location can name his , however, he is somewhat dysarthric. His exact last known well time is not specifically known, his noticed the symptoms sometimes yesterday morning, therefore, patient not a TPA candidate as he presents more than 4.5 hours after last known well time, and his is not able to recall his exact last known well time. His examination is not suggestive of a large vessel occlusion. Placed on supplemental oxygen, saturating at 99% on 2 to 3 L. Accu-Chek 78, patient will be placed on dextrose as needed, and Accu-Cheks will be obtained every 4 hours. Appropriate laboratory studies will be obtained, x-ray of the chest will be obtained, neurologic consultation will be obtained, and we anticipate admission once initial diagnostics have resulted. I have discussed this plan of care with the patient and his , who have verbalized understanding. As per review of the medication list, does not appear that patient is on sulfonylureas Reevaluation #2: 04/25/20 13:37 Hospital physician, Dr. Sarmiento to admit. As a courtesy, have discussed history, physical, pertinent laboratory studies with Susana, nurse practitioner for nephrology, Dr. Cui, nephrology will follow as the patient is due for routine hemodialysis tomorrow CT scan of the brain is negative Nursing team to feed patient. Repeat Accu-Chek is pending. - EJ/Peripheral Line Neck R Time Out Performed: Yes Indications: nurses unable to establis Skin Cleansed in Sterile Fashion: Yes Size: 22 Dressing Placed: Tegaderm Patient Tolerated Procedure: other Additional Comments: Right neck was prepped in typical aseptic fashion. 20-gauge IV catheter was inserted, and unfortunately did not cannulate external jugular vein. Reprepped, and then inserted 22-gauge right sided external jugular IV. 22-gauge of right sided external jugular IV placed by myself. Minimal infiltration noted, however, line flushes well distally, and we have easy pull back on blood. ED Medical Decision Making - Lab Data Result diagrams: 04/25/20 11:15 04/25/20 11:15 Vital Signs 04/25/20 04/25/20 08:58 09:34 Temperature 97.8 F Pulse Rate 90 Respiratory 18 Rate Blood Pressure 150/76 [Right] O2 Sat by Pulse 84 96 Oximetry - EKG Data -: EKG Interpreted by Ak EKG shows normal: sinus rhythm Rate: normal - EKG Data 04/25/20 12:32 Sinus rhythm, 94 bpm, normal axis, QTC prolonged, left ventricular hypertrophy, peaked T waves, poor R wave progression. Abnormal EKG. Not a STEMI. - Radiology Data Radiology results: pending, report reviewed, image reviewed Print Report Referring Physician: MARIANNE PRETTY Patient Name: YOGESH MIRANDA Date of : 1950 Sex: Male Report Date: 2020-04-25 Report Status: Finalized Findings [facility] [address] [place] [address] XRay Report Signed Patient: YOGESH MIRANDA MR#: [id number] : 1950 Acct:A02 [id number] Age/Sex: 70 / M ADM Date: 04/25/20 Loc: ED Attending Dr: Ordering Physician: MARIANNE PRETTY MD Date of Service: 04/25/20 Procedure(s): XR chest 1V ap Accession Number(s): [id number] cc: MARIANNE PRETTY MD Fluoro Time In Minutes: CHEST 1 VIEW 04/25/2020 10:29 AM INDICATION / CLINICAL INFORMATION: Altered Mental Status. COMPARISON: Chest one view from 09/01/2019. FINDINGS: SUPPORT DEVICES: None. HEART / MEDIASTINUM: No significant abnormality. LUNGS / PLEURA: No significant pulmonary or pleural abnormality. No pneumothorax. ADDITIONAL FINDINGS: Stents are again seen along the left axilla. IMPRESSION: 1. No acute abnormality of the chest. Signer Name: Rey Arriaza MD Signed: 04/25/2020 11:45 AM Workstation Name: [id number] Transcribed By: MN Dictated By: Rey Arriaza MD Electronically Authenticated By: Rey Arriaza MD Signed Date/Time: 04/25/20 1145 DD/ 1145 TD/TT: Critical care attestation.: If time is entered above; I have spent that time in minutes in the direct care of this critically ill patient, excluding procedure time. ED Disposition Clinical Impression: COPD (chronic obstructive pulmonary disease), AMS (altered mental status), Jerking movements of extremities, ESRD on hemodialysis, Hypoglycemia Disposition: OP ADMIT IP TO THIS HOSP Is pt being admited?: Yes Does the pt Need Aspirin: Yes Condition: Fair - Assessment Assessment Interval: Baseline - Level of Consciousness 1a. Level of Consciousness: alert/keenly responsive - LOC Questions 1b. LOC Questions: answers both correctly - LOC Command 1c. LOC Commands: performs tasks correctly - Best Gaze 2. Best Gaze: normal - Visual 3. Visual: no visual loss - Facial Palsy 4. Facial Palsy: normal symmetrical movement - Motor Arm 5a. Motor Arm Left: drift 5b. Motor Arm Right: drift - Motor Leg 6a. Motor Leg Left: drift 6b. Motor Leg Right: drift - Limb Ataxia 7. Limb Ataxia: absent - Sensory 8. Sensory: normal - Best Language 9. Best Language: no aphasia - Dysarthria 10. Dysarthria: mild/moderate dysarthria - Extinction and Inattention 11. Extinction/Inattention: no abnormality - Scoring Total Score: 5 Stroke Severity: Moderate Stroke
[2020-04-25] MEDS ORDERED: DEXTROSE 50% IN WATER (25GM) 50 ML VIAL IV PRN (10:28)
--- NOTE | 2020-04-25 11:05 | Consultation ---
History of Present Illness - Reason for Consult Consult date: 04/25/20 slurred speech - History of Present Illness [facility] Consult Services Stat Consult Date of Service: 04/25/2020 10:23:33 Impression: Encephalopathy metabolic encephalopathy r/o hepatic involvement Comments/Sign-Out: 70 yo M w pmh of esrd on hd last hd yesterday, copd, neck pain chronic and htn not on ac or antiplatelet therapy presenting w confusion and slurred speech and generalized jerks/twitching precluding him from walking since Thursday. CT HEAD: pending to be done Metrics: [facility] Notification Time: 04/25/2020 10:21:27 Stamp Time: 04/25/2020 10:23:33 Callback Response Time: 04/25/2020 10:23:46 Video Start Time: 04/25/2020 10:40:00 Video End Time: 04/25/2020 10:56:37 Our recommendations are outlined below. Recommendations: Antiplatelet Therapy if negative for bleeding correct metabolic disturbances r/o infectious/toxic etiologies as well hct pending f/u results if no improvement consider mri w/o contrast Imaging Studies: MRI Head Without Contrast Other WorkUp: Infectious/metabolic workup per primary team Check CMP Check an ammonia level Check TSH Check Urinalysis Disposition: Neurology Follow Up Recommended Sign Out: Discussed with Emergency Department Provider Chief Complaint: jerks, confusion and slurred speech History of Present Illness: Patient is a 70 year old Male. 70 yo M w [facility] of es[facility] on hd last hd yesterday, copd, neck pain chronic and htn not on ac or antiplatelet therapy presenting w confusion and slurred speech and generalized jerks/twitching precluding him from walking since Thursday. He is ambulatory w/o assistance at baseline. providing history says that he has been slow to respond or to speak and almost falls when he walks. Past Medical History: Hypertension Anticoagulant use: No Antiplatelet use: No Examination: BP(119/53), Pulse(78), Blood Glucose(84) 1A: Level of Consciousness - Alert; keenly responsive + 0 1B: Ask Month and Age - Both Questions Right + 0 1C: Blink Eyes & Squeeze Hands - Performs Both Tasks + 0 2: Test Horizontal Extraocular Movements - Normal + 0 3: Test Visual Bedolla - No Visual Loss + 0 4: Test Facial Palsy (Use Grimace if Obtunded) - Normal symmetry + 0 5A: Test Left Arm Motor Drift - No Drift for 10 Seconds + 0 5B: Test Right Arm Motor Drift - No Drift for 10 Seconds + 0 6A: Test Left Leg Motor Drift - No Drift for 5 Seconds + 0 6B: Test Right Leg Motor Drift - No Drift for 5 Seconds + 0 7: Test Limb Ataxia (FNF/Heel-Reyes) - No Ataxia + 0 8: Test Sensation - Normal; No sensory loss + 0 9: Test Language/Aphasia - Normal; No aphasia + 0 10: Test Dysarthria - dysarthria 11: Test Extinction/Inattention - No abnormality + 0 NIHSS Score: 1 Patient/Family was informed the Neurology Consult would happen via TeleHealth consult by way of interactive audio and video telecommunications and consented to receiving care in this manner. Due to the immediate potential for life-threatening deterioration due to underlying acute neurologic illness, I spent 22 minutes providing critical care. This time includes time for face to face visit via telemedicine, review of medical records, imaging studies and discussion of findings with providers, the patient and/or family. Dr Katelyn Donald [facility] Case [id number] Medications and Allergies Allergies Allergy/AdvReac Type Severity Reaction Status Date / Time No Known Allergies Allergy Verified 07/14/19 11:18 Home Medications Medication Instructions Recorded Confirmed Last Taken Type lisinopriL [Zestril TAB] 20 mg PO QDAY 05/24/15 09/01/19 05/24/15 History raNITIdine HCl [Zantac] 150 mg PO BID 05/24/15 09/01/19 05/24/15 History Cinacalcet HCl [Sensipar] 60 mg PO DAILY 07/23/19 09/01/19 Unknown History Famotidine [Pepcid] 20 mg PO BID 07/23/19 09/01/19 Unknown History Sevelamer Carbonate [Renvela] 1,600 mg PO TID 07/23/19 09/01/19 Unknown History Vit B Complx C/Folic Acid/Zinc 1 tab PO DAILY 07/23/19 09/01/19 Unknown History [Dialyvite 800-Zinc 50 mg Tab] amLODIPine 10 mg PO DAILY 07/23/19 09/01/19 Unknown History cloNIDine [Catapres] 0.1 mg PO TID 07/23/19 09/01/19 Unknown History Pantoprazole [Protonix TAB] 40 mg PO BID #60 tablet 07/26/19 09/01/19 Unknown Rx Budesonide/Formoterol Fumarate 10.2 gm IH TID 09/01/19 09/01/19 Unknown History [Symbicort 160-4.5 Mcg Inhaler] Cyproheptadine [Periactin] 4 mg PO TID 09/01/19 09/01/19 Unknown History Ferric Citrate (Nf) [Auryxia] 210 mg PO TID 09/01/19 09/01/19 Unknown History HYDROcodone/APAP 5-325 [[place] 1 each PO Q6HR PRN 09/01/19 09/01/19 Unknown History 5-325 mg TAB] Metoprolol Tartrate [Lopressor] 100 mg PO QDAY 09/01/19 09/01/19 Unknown History Active Meds: Active Medications Dextrose (D50w (25gm) Vial) 50 gm IV Q30MIN PRN; Protocol PRN Reason: Hypoglycemia Exam - Constitutional Vitals: Temp Pulse Resp BP Pulse Ox 97.8 F 90 18 150/76 96 04/25/20 08:58 04/25/20 08:58 04/25/20 08:58 04/25/20 08:58 04/25/20 09:34
[2020-04-25 11:47] LABS: Basophils # (Auto) 0.1 K/mm3 (0.0-0.1); Basophils % (Auto) 1.1 % (0.0-1.8); Eosinophils % (Auto) 0.8 % (0.0-4.3); Hematocrit 36.6 % (35.5-45.6); Hemoglobin 11.3 gm/dl (11.8-15.2); Lymphocytes # (Auto) 0.7 K/mm3 (1.2-5.4); Lymphocytes % (Auto) 14.4 % (13.4-35.0); Mean Corpuscular HGB Conc 31 % (32-34); Mean Corpuscular Volume 106 fl (84-94); Monocytes # (Auto) 0.5 K/mm3 (0.0-0.8); Monocytes % (Auto) 10.5 % (0.0-7.3); Platelet Count 203 K/mm3 (140-440); Red Blood Count 3.47 M/mm3 (3.65-5.03)
--- NOTE | 2020-04-25 11:50 | XRay Report ---
CHEST 1 VIEW 04/25/2020 10:29 AM INDICATION / CLINICAL INFORMATION: Altered Mental Status. COMPARISON: Chest one view from 09/01/2019. FINDINGS: SUPPORT DEVICES: None. HEART / MEDIASTINUM: No significant abnormality. LUNGS / PLEURA: No significant pulmonary or pleural abnormality. No pneumothorax. ADDITIONAL FINDINGS: Stents are again seen along the left axilla. IMPRESSION: 1. No acute abnormality of the chest. Signer Name: Rey Arriaza MD Signed: 04/25/2020 11:45 AM Workstation Name: [id number]
[2020-04-25 11:57] LABS: INR 0.94 (0.87-1.13); Partial Thromboplastin Time 32.9 Sec. (24.2-36.6)
[2020-04-25 12:04] LABS: Albumin 4.1 g/dL (3.9-5); Calcium 8.7 mg/dL (8.4-10.2)
[2020-04-25] MEDS ORDERED: ACETAMINOPHEN 325 MG TAB PO PRN (12:59)
[2020-04-25] MEDS ORDERED: ONDANSETRON 4 MG/2 ML INJ IV PRN (12:59)
[2020-04-25] MEDS ORDERED: ALBUTEROL 2.5 MG/3 ML NEBU IH PRN (12:59)
--- NOTE | 2020-04-25 12:59 | History and Physical Report ---
History of Present Illness Chief complaint: He has gotten weaker and is more confused History of present illness: 70 YO Male with ESRD on HD(T,R,Sa), COPD, Chronic Respiratory Failure on home oxygen via nasal canula, CHF, Severe Malnutrition presents to ED for evaluation. Patient is confused with diminished cognition at the time of my evaluation and provides minimal history. Patient is at bedside during exam and interview and provides detailed history. As per , the patient has experienced increased confusion, decreased verbalization, increased tangential or nonsensical speech, decreased exercise tolerance over the past 1 month with progressively worsening symptoms over the past 1 week. Patient transported to [facility] via private vehicle for further care and evaluation of the aforementioned symptoms. Patient seen and evaluated in the emergency department. All lab and imaging studies reviewed. Patient found to have metabolic encephalopathy, severe malnutrition, hyponatremia, as well as end-stage renal disease. Patient also found to have symptoms consistent with vascular dementia. As per the patient's wifeno reported fever, chills, chest pain, palpitation, productive cough, skin rash, recent ill contacts, or known exposure to COVID-19. Patient placed in observation status and admitted to medical floor due to increased risk of worsening symptoms. Prior admission on 09/01/2019 reviewed. All medication listed at time of admission has been reconciled., Past History Past Medical History: COPD, ESRD, heart failure, other (See HPI) Past Surgical History: hernia repair, tonsillectomy Medications and Allergies Allergies Allergy/AdvReac Type Severity Reaction Status Date / Time No Known Allergies Allergy Verified 07/14/19 11:18 Home Medications Medication Instructions Recorded Confirmed Last Taken Type lisinopriL [Zestril TAB] 20 mg PO QDAY 05/24/15 09/01/19 05/24/15 History raNITIdine HCl [Zantac] 150 mg PO BID 05/24/15 09/01/19 05/24/15 History Cinacalcet HCl [Sensipar] 60 mg PO DAILY 07/23/19 09/01/19 Unknown History Famotidine [Pepcid] 20 mg PO BID 07/23/19 09/01/19 Unknown History Sevelamer Carbonate [Renvela] 1,600 mg PO TID 07/23/19 09/01/19 Unknown History Vit B Complx C/Folic Acid/Zinc 1 tab PO DAILY 07/23/19 09/01/19 Unknown History [Dialyvite 800-Zinc 50 mg Tab] amLODIPine 10 mg PO DAILY 07/23/19 09/01/19 Unknown History cloNIDine [Catapres] 0.1 mg PO TID 07/23/19 09/01/19 Unknown History Pantoprazole [Protonix TAB] 40 mg PO BID #60 tablet 07/26/19 09/01/19 Unknown Rx Budesonide/Formoterol Fumarate 10.2 gm IH TID 09/01/19 09/01/19 Unknown History [Symbicort 160-4.5 Mcg Inhaler] Cyproheptadine [Periactin] 4 mg PO TID 09/01/19 09/01/19 Unknown History Ferric Citrate (Nf) [Auryxia] 210 mg PO TID 09/01/19 09/01/19 Unknown History HYDROcodone/APAP 5-325 [[place] 1 each PO Q6HR PRN 09/01/19 09/01/19 Unknown History 5-325 mg TAB] Metoprolol Tartrate [Lopressor] 100 mg PO QDAY 09/01/19 09/01/19 Unknown History Active Meds: Active Medications Dextrose (D50w (25gm) Vial) 50 gm IV Q30MIN PRN; Protocol PRN Reason: Hypoglycemia Review of Systems ROS unobtainable: due to mental status Exam - Constitutional Vitals: Temp Pulse Resp BP Pulse Ox 97.8 F 88 16 169/64 100 04/25/20 08:58 04/25/20 12:53 04/25/20 12:53 04/25/20 12:53 04/25/20 12:53 General appearance: Present: mild distress - EENT Eyes: Present: PERRL ENT: clear oral mucosa, hearing decreased - Neck Neck: Present: supple, normal ROM - Respiratory Respiratory effort: normal Respiratory: bilateral: CTA - Cardiovascular Heart Sounds: Present: S1 & S2. Absent: rub, click - Extremities Extremities: pulses symmetrical, No edema Peripheral Pulses: within normal limits - Abdominal General gastrointestinal: Present: soft, non-tender, non-distended, normal bowel sounds Male genitourinary: Present: normal - Integumentary Integumentary: Present: clear, dry, clammy - Musculoskeletal Musculoskeletal: generalized weakness - Psychiatric Psychiatric: cooperative - Neurologic Neurologic: CNII-XII intact Results - Labs CBC & Chem 7: 04/25/20 11:15 04/25/20 11:15 Labs: Abnormal lab results 04/25/20 04/25/20 04/25/20 Range/Units 11:15 11:15 11:15 RBC 3.47 L (3.65-5.03) M/mm3 Hgb 11.3 L (11.8-15.2) gm/dl MCV 106 H (84-94) fl MCH 33 H (28-32) pg MCHC 31 L (32-34) % [place] % (Auto) 10.5 H (0.0-7.3) % Lymph # (Auto) 0.7 L (1.2-5.4) K/mm3 Seg Neutrophils % 73.2 H (40.0-70.0) % Sodium 134 L (137-145) mmol/L Chloride 92.0 L (98-107) mmol/L Creatinine 9.8 H (0.8-1.3) mg/dL Ammonia 20.0 L (25-60) umol/L Salicylates (2.8-20.0) mg/dL Acetaminophen (10.0-30.0) ug/mL 04/25/20 04/25/20 Range/Units 11:15 11:15 RBC (3.65-5.03) M/mm3 Hgb (11.8-15.2) gm/dl MCV (84-94) fl MCH (28-32) pg MCHC (32-34) % [place] % (Auto) (0.0-7.3) % Lymph # (Auto) (1.2-5.4) K/mm3 Seg Neutrophils % (40.0-70.0) % Sodium (137-145) mmol/L Chloride (98-107) mmol/L Creatinine (0.8-1.3) mg/dL Ammonia (25-60) umol/L Salicylates < 0.3 L (2.8-20.0) mg/dL Acetaminophen 5.0 L (10.0-30.0) ug/mL Assessment and Plan - Patient Problems (1) Metabolic encephalopathy Current Visit: Yes Status: Acute Plan to address problem: CT head, neuro check, seizure precautions, aspiration precautions, fall precautions, diet with assistance. (2) Vascular dementia Current Visit: Yes Status: Acute Qualifiers: Dementia behavioral disturbance: without behavioral disturbance Qualified Code(s): F01.50 - Vascular dementia without behavioral disturbance Plan to address problem: Supportive care, verbal prompting, verbal redirection, benzodiazepine therapy as clinically indicated (3) End stage renal disease Current Visit: Yes Status: Acute Plan to address problem: Nephrology team consulted in ED, dialysis as per renal team, strict I's/O, monitor urine output every shift, daily weight, avoid nephrotoxic agents. (4) Hyponatremia syndrome Current Visit: Yes Status: Acute Plan to address problem: Supportive care, free water intake, repeat BMP in a.m. (5) DVT prophylaxis Current Visit: Yes Status: Acute Plan to address problem: SCD to bilateral lower extremities while in bed, prophylactic anticoagulation (6) Advance care planning Current Visit: Yes Status: Acute Plan to address problem: Disease education conducted, patient is full code, prognosis discussed, patient knowledges understanding and agreement with care plan, +30 minutes.
--- NOTE | 2020-04-25 13:00 | Cat Scan Report ---
NONENHANCED CT SCAN OF THE HEAD: INDICATION / CLINICAL INFORMATION: 70 years Male; Altered Mental Status. TECHNIQUE: Routine CT head without contrast. All CT scans at this location are performed using CT dos e reduction for ALARA by means of automated exposure control. COMPARISON: CT scan of the head from 06/28/2019 and MRI scan of the brain from 06/30/2019 FINDINGS: BRAIN / INTRACRANIAL CONTENTS: No acute hemorrhage, mass effect, midline shift, hydrocephalus, or acu te, large territorial infarct. No chronic infarct or focal atrophy. Mild cortical involution; conflue nt white matter low attenuation areas due to chronic small vessel disease CRANIOCERVICAL JUNCTION: No significant abnormality. ORBITS: No significant abnormality of visualized orbits. SINUSES / MASTOIDS: No significant abnormality of the visualized paranasal sinuses or mastoid air velia ls. ADDITIONAL FINDINGS: None. IMPRESSION: No acute focal parenchymal lesion in the brain Signer Name: Fidencio Asher MD Signed: 04/25/2020 12:56 PM Workstation Name: [id number]
[2020-04-25] MEDS ORDERED: HYDROcodone/ACETAMINOPHEN 5-325 MG TAB PO PRN (13:18)
[2020-04-25] MEDS ORDERED: ASPIRIN 81 MG TAB CHEW PO ONE (13:38)
[2020-04-25] MEDS ORDERED: ASPIRIN 81 MG TAB CHEW ONE (15:33)
[2020-04-25] MEDS ORDERED: cloNIDine 0.1 MG TAB ONE (15:34)
[2020-04-25] MEDS: SEVELAMER CARBONATE 800 MG TAB PO SCH (15:47)
[2020-04-25] MEDS: CYPROHEPTADINE 4 MG TAB PO SCH (15:48)
[2020-04-25] MEDS: NON-FORMULARY EACH (Ferric Citrate (Nf) 210 MG) PO SCH ×2 (15:58→20:01)
[2020-04-25] MEDS: cloNIDine 0.1 MG TAB PO SCH (15:59)
[2020-04-25] MEDS ORDERED: NON-FORMULARY EACH (Ranitidine Hcl [Zantac] 150 MG) PO SCH (22:00)
[2020-04-26] MEDS: cloNIDine 0.1 MG TAB PO SCH ×4 (00:31→21:09)
[2020-04-26] MEDS: CYPROHEPTADINE 4 MG TAB PO SCH ×4 (00:32→21:13)
[2020-04-26] MEDS: SEVELAMER CARBONATE 800 MG TAB PO SCH ×3 (00:32→16:00)
[2020-04-26] MEDS: FAMOTIDINE 20 MG TAB PO SCH ×2 (00:33→10:47)
[2020-04-26] MEDS: PANTOPRAZOLE 40 MG TAB PO SCH ×3 (00:33→23:50)
[2020-04-26] MEDS ORDERED: NON-FORMULARY EACH (Cinacalcet Hcl [Sensipar] 60 MG) PO SCH (10:00)
[2020-04-26] MEDS ORDERED: FOLIC ACID PO SCH (10:00)
[2020-04-26] MEDS ORDERED: ZINC PO SCH (10:00)
[2020-04-26] MEDS ORDERED: VIT B COMPLX C PO SCH (10:00)
[2020-04-26] MEDS ORDERED: [UNRECOGNIZED DRUG - OTHER] PO SCH (10:00)
[2020-04-26] MEDS: amLODIPine 10 MG TAB PO SCH (10:48)
[2020-04-26] MEDS ORDERED: SODIUM CHLORIDE 0.9% 100 ML IV PRN (11:23)
--- NOTE | 2020-04-26 11:27 | Consultation ---
History of Present Illness - Reason for Consult Consult date: 04/26/20 end stage renal disease - History of Present Illness Mr. Connell is a 70y gentleman with ESRD on HD TTS who presented to the ED with change in mental status. Patient's reported onset on day prior to admission - weakness, change in speech and involuntary movements. Past History Past Medical History: COPD, ESRD, heart failure, other (See HPI) Past Surgical History: hernia repair, tonsillectomy Medications and Allergies Allergies Allergy/AdvReac Type Severity Reaction Status Date / Time No Known Allergies Allergy Verified 07/14/19 11:18 Home Medications Medication Instructions Recorded Confirmed Last Taken Type lisinopriL [Zestril TAB] 20 mg PO QDAY 05/24/15 04/25/20 05/24/15 History Cinacalcet HCl [Sensipar] 60 mg PO DAILY 07/23/19 04/25/20 Unknown History Famotidine [Pepcid] 20 mg PO BID 07/23/19 04/25/20 Unknown History Sevelamer Carbonate [Renvela] 1,600 mg PO TID 07/23/19 04/25/20 Unknown History Vit B Complx C/Folic Acid/Zinc 1 tab PO DAILY 07/23/19 04/25/20 Unknown History [Dialyvite 800-Zinc 50 mg Tab] amLODIPine 10 mg PO DAILY 07/23/19 04/25/20 Unknown History cloNIDine [Catapres] 0.1 mg PO TID 07/23/19 04/25/20 Unknown History Pantoprazole [Protonix TAB] 40 mg PO BID #60 tablet 07/26/19 04/25/20 Unknown Rx Cyproheptadine [Periactin] 4 mg PO TID 09/01/19 04/25/20 Unknown History Metoprolol Tartrate [Lopressor] 100 mg PO QDAY 09/01/19 04/25/20 Unknown History Active Meds: Active Medications Acetaminophen (Tylenol) 650 mg PO Q4H PRN PRN Reason: Pain MILD(1-3)/Fever >100.5/LAIRD Hydrocodone Bitart/Acetaminophen ([place] 5/325) 1 each PO Q6HR PRN PRN Reason: Pain, Moderate (4-6) Albuterol (Proventil) 2.5 mg IH Q4HRT PRN PRN Reason: Shortness Of Breath Amlodipine Besylate (Amlodipine) 10 mg PO DAILY [facility] Last Admin: 04/26/20 10:48 Dose: 10 mg Documented by: Cinacalcet (Sensipar) 60 mg PO DAILY [facility] Clonidine HCl (Catapres) 0.1 mg PO TID [facility] Last Admin: 04/26/20 10:47 Dose: 0.1 mg Documented by: Cyproheptadine HCl (Periactin) 4 mg PO TID [facility] Last Admin: 04/26/20 00:32 Dose: 4 mg Documented by: Dextrose (D50w (25gm) Vial) 50 gm IV Q30MIN PRN; Protocol PRN Reason: Hypoglycemia Famotidine (Pepcid) 20 mg PO BID [facility] Last Admin: 04/26/20 10:47 Dose: 20 mg Documented by: Lisinopril (Zestril) 20 mg PO QDAY [facility] Metoprolol Tartrate (Metoprolol) 100 mg PO QDAY [facility] Miscellaneous Medication (Ferric Citrate (Nf)) 210 mg PO TID [facility] Last Admin: 04/25/20 20:01 Dose: Not Given Documented by: Ondansetron HCl (Zofran) 4 mg IV Q8H PRN PRN Reason: Nausea And Vomiting Pantoprazole Sodium (Protonix) 40 mg PO BID [facility] Last Admin: 04/26/20 10:47 Dose: 40 mg Documented by: Sevelamer Carbonate (Renvela) 1,600 mg PO TID [facility] Last Admin: 04/26/20 10:47 Dose: 1,600 mg Documented by: Sodium Chloride (Sodium Chloride Flush Syringe 10 Ml) 10 ml IV BID [facility] Last Admin: 04/26/20 00:33 Dose: 10 ml Documented by: Sodium Chloride (Sodium Chloride Flush Syringe 10 Ml) 10 ml IV PRN PRN PRN Reason: LINE FLUSH Vitamin B Complex/Vitamin C ([place] With C) 1 each PO QDAY [facility] Review of Systems All systems: negative Exam - Vital Signs Vital signs: Vital Signs Temp Pulse Resp BP Pulse Ox 97.8 F 90 18 150/76 84 04/25/20 08:58 04/25/20 08:58 04/25/20 08:58 04/25/20 08:58 04/25/20 08:58 - General Appearance General appearance: well-developed, well-nourished EENT: ATNC Respiratory: Clear to Ascultation Heart: regular, S1S2 Gastrointestinal: Present: normal. Absent: tenderness, distended Integumentary: no rash, warm and dry Neurologic: other (involuntary movement/tremor) Psychiatric: cooperative Results - Lab Results 04/26/20 04:00 04/26/20 04:00 Most recent lab results Calcium 8.7 mg/dL (8.4-10.2) 04/25/20 11:15 Magnesium 2.10 mg/dL (1.7-2.3) 04/25/20 11:15 Assessment and Plan Impression * End stage renal disease * Acute encephalopathy * Involuntary tremor/movement * COPD * Anemia secondary to ESRD * Secondary hyperparathyroidism Plan: * Hemodialysis today - UF as tolerated * Continue TTS schedule * Neurology recommendations reviewed * Will d/c Periactin * Hold narocotics - will d/c Hydrocodone * Dose medications for renal function * Avoid potential nephrotoxins
[2020-04-26 12:28] LABS: Hematocrit 28.6 % (35.5-45.6); Hemoglobin 9.3 gm/dl (11.8-15.2); Mean Corpuscular HGB Conc 33 % (32-34); Mean Corpuscular Volume 103 fl (84-94); Platelet Count 149 K/mm3 (140-440); Red Blood Count 2.78 M/mm3 (3.65-5.03); Red Cell Distribution Width 14.3 % (13.2-15.2)
[2020-04-26 12:47] LABS: Albumin 3.4 g/dL (3.9-5); Calcium 7.9 mg/dL (8.4-10.2)
[2020-04-26 13:52] LABS: Hepatitis B Surface Antigen Non-Reactive (Negative); Hepatitis C Virus Antibody Non-Reactive (NonReactive)
[2020-04-26 14:39] LABS: Anisocytosis Few; Basophils % (Manual) 0 % (0.0-1.8); Hypochromasia Few; Macrocytosis 1+; Platelet Estimate Consistent w Auto; Total Cells Counted 100
[2020-04-26] MEDS: METOPROLOL TARTRATE 100 MG TAB PO SCH (16:00)
[2020-04-26] MEDS: LISINOPRIL 20 MG TAB PO SCH (16:00)
[2020-04-26] MEDS: CINACALCET 30 MG TAB PO SCH (16:01)
[2020-04-26] MEDS: B COMPLEX W/VITAMIN C TAB PO SCH (18:00)
--- NOTE | 2020-04-26 22:56 | Progress Note ---
Assessment and Plan --Acute metabolic encephalopathy Could be secondary to poor oral intake and dehydration CT head without any acute abnormality Continue to monitor with neuro check, seizure precautions, aspiration precautions, fall precautions, diet with assistance. -- Vascular dementia Supportive care, verbal prompting, verbal redirection, benzodiazepine therapy as clinically indicated -- End stage renal disease Nephrology team consulted in ED, dialysis as per renal team, strict I's/O, monitor urine output every shift, daily weight, avoid nephrotoxic agents. -- Hyponatremia syndrome Supportive care, free water intake, repeat BMP in a.m. -Moderate to severe protein calorie malnutrition Likely from underlying dementia and poor oral intake Started on supplemental nutrition with meal, dietary consult -- DVT prophylaxis SCD to bilateral lower extremities while in bed, prophylactic anticoagulation -- Advance care planning: patient is full code Disposition: PT consulted, showcase trimmer notified for placement. Continue to monitor and provide supportive care Subjective Date of service: 04/26/20 Interval history: Patient seen and examined Patient denies any chest pain or shortness of breath Getting dialysis, no acute event reported by RN Objective - Exam Narrative Exam: GENERAL: Elderly -Stateless male lying on bed appeared to be in no discomfort. HEENT: Normocephalic. Atraumatic. No conjunctival congestion or icterus. Patient has moist mucous membranes. NECK: Supple. Trachea midline. CHEST/LUNGS: Clear to auscultated bilaterally, breathing nonlabored. No wheezes crackles or rhonchi. HEART/CARDIOVASCULAR: Regular in rate and rhythm. S1 and S2 positive. ABDOMEN: Abdomen is soft, nontender. Patient has normal bowel sounds. SKIN: There is no rash. Warm and dry. NEURO: No focal motor deficit. Follows command. Patient only oriented to person MUSCULOSKELETAL: No joint effusion or tenderness. Generalized muscle wasting EXTRIMITY: No edema, no cyanosis or clubbing. PSYCH: Cooperative. - Constitutional Vitals: Vital Signs - 12hr 04/26/20 04/26/20 04/26/20 11:19 11:55 12:00 Temperature 98.3 F 98.3 F Pulse Rate 90 92 H 89 Respiratory 18 18 Rate Blood Pressure 143/45 139/71 135/72 O2 Sat by Pulse 96 Oximetry 04/26/20 04/26/20 04/26/20 12:15 12:30 12:45 Temperature Pulse Rate 87 90 95 H Respiratory Rate Blood Pressure 129/66 123/65 134/70 O2 Sat by Pulse Oximetry 04/26/20 04/26/20 04/26/20 13:00 13:15 13:30 Temperature Pulse Rate 97 H 97 H 100 H Respiratory Rate Blood Pressure 118/72 133/72 125/76 O2 Sat by Pulse Oximetry 04/26/20 04/26/20 04/26/20 13:45 14:00 14:15 Temperature Pulse Rate 105 H 102 H 94 H Respiratory Rate Blood Pressure 117/76 125/68 129/98 O2 Sat by Pulse Oximetry 04/26/20 04/26/20 04/26/20 14:30 14:45 15:00 Temperature 99.4 F Pulse Rate 106 H 100 H 98 H Respiratory 18 Rate Blood Pressure 113/67 112/75 132/68 O2 Sat by Pulse Oximetry 04/26/20 04/26/20 04/26/20 15:44 19:17 21:09 Temperature 98.4 F 98.7 F Pulse Rate 93 H 97 H 81 Respiratory 18 18 Rate Blood Pressure 121/66 143/59 115/58 O2 Sat by Pulse 94 96 Oximetry - Labs CBC & Chem 7: 04/26/20 04:00 04/26/20 04:00 Labs: Abnormal lab results 04/26/20 04/26/20 04/26/20 Range/Units 04:00 04:00 11:36 WBC 3.3 L (4.5-11.0) K/mm3 RBC 2.78 L (3.65-5.03) M/mm3 Hgb 9.3 L (11.8-15.2) gm/dl Hct 28.6 L D (35.5-45.6) % MCV 103 H (84-94) fl MCH 33 H (28-32) pg Monocytes % (Manual) 10.0 H (0.0-7.3) % Lymphocytes # (Manual) 0.7 L (1.2-5.4) K/mm3 Sodium 134 L (137-145) mmol/L Chloride 93.9 L (98-107) mmol/L Carbon Dioxide 31 H (22-30) mmol/L BUN 29 H (9-20) mg/dL Creatinine 11.1 H (0.8-1.3) mg/dL Glucose 125 H (75-100) mg/dL POC Glucose 206 H (70-105) mg/dL Calcium 7.9 L (8.4-10.2) mg/dL Albumin 3.4 L (3.9-5) g/dL 04/26/20 Range/Units 17:37 WBC (4.5-11.0) K/mm3 RBC (3.65-5.03) M/mm3 Hgb (11.8-15.2) gm/dl Hct (35.5-45.6) % MCV (84-94) fl MCH (28-32) pg Monocytes % (Manual) (0.0-7.3) % Lymphocytes # (Manual) (1.2-5.4) K/mm3 Sodium (137-145) mmol/L Chloride (98-107) mmol/L Carbon Dioxide (22-30) mmol/L BUN (9-20) mg/dL Creatinine (0.8-1.3) mg/dL Glucose (75-100) mg/dL POC Glucose 190 H (70-105) mg/dL Calcium (8.4-10.2) mg/dL Albumin (3.9-5) g/dL
[2020-04-27] MEDS ORDERED: FAMOTIDINE 20 MG TAB PO SCH (10:00)
[2020-04-27] MEDS: SEVELAMER CARBONATE 800 MG TAB PO SCH ×3 (11:22→16:44)
[2020-04-27] MEDS: METOPROLOL TARTRATE 100 MG TAB PO SCH (11:23)
[2020-04-27] MEDS: PANTOPRAZOLE 40 MG TAB PO SCH ×2 (11:23→23:33)
[2020-04-27] MEDS: amLODIPine 10 MG TAB PO SCH (11:24)
[2020-04-27] MEDS: LISINOPRIL 20 MG TAB PO SCH (11:24)
[2020-04-27] MEDS: cloNIDine 0.1 MG TAB PO SCH ×3 (11:25→23:39)
[2020-04-27] MEDS: B COMPLEX W/VITAMIN C TAB PO SCH (11:52)
[2020-04-27] MEDS: CINACALCET 30 MG TAB PO SCH (11:52)
--- NOTE | 2020-04-27 18:24 | Progress Note ---
Assessment and Plan Impression * End stage renal disease * Acute encephalopathy - ?secondary to Periactin * Involuntary tremor/movement * COPD * Anemia secondary to ESRD * Secondary hyperparathyroidism Plan: * Patient is s/p HD yesterday. No acute need for HD today * Continue TTS schedule * UF as tolerated * Continue to hold Periactin * Avoid narcotics * Dose medications for renal function * Avoid potential nephrotoxins * Contacted patient's , Lexii Connell, via phone - provided update Subjective Date of service: 04/27/20 Interval history: Patient has no complaints today. Feels less confused. Objective - Vital Signs Vital signs: Vital Signs - 12hr 04/27/20 04/27/20 04/27/20 06:58 07:00 11:03 Temperature 97.4 F L 97.5 F L 98.0 F Pulse Rate 69 69 75 Respiratory 18 18 18 Rate Blood Pressure 141/64 123/62 Blood Pressure 141/64 [Right] O2 Sat by Pulse 96 96 96 Oximetry 04/27/20 04/27/20 04/27/20 11:23 11:24 11:25 Temperature Pulse Rate 75 75 75 Respiratory Rate Blood Pressure 123/62 123/62 123/62 Blood Pressure [Right] O2 Sat by Pulse Oximetry 04/27/20 04/27/20 14:54 14:56 Temperature 97.0 F L Pulse Rate 68 67 Respiratory 18 Rate Blood Pressure 111/56 111/57 Blood Pressure [Right] O2 Sat by Pulse 94 Oximetry - General Appearance General appearance: well-developed, well-nourished EENT: ATNC Respiratory: Present: Clear to Ascultation Cardiology: regular, S1S2 Gastrointestinal: normal Neurologic: other (speech less slurred, less confused today) - Lab 04/26/20 04:00 04/26/20 04:00 Most recent lab results Calcium 7.9 mg/dL (8.4-10.2) L 04/26/20 04:00 Magnesium 2.10 mg/dL (1.7-2.3) 04/25/20 11:15 Medications & Allergies - Medications Allergies/Adverse Reactions: Allergies No Known Allergies Allergy (Verified 07/14/19 11:18) Home Medications: Home Medications Medication Instructions Recorded Confirmed Last Taken Type lisinopriL [Zestril TAB] 20 mg PO QDAY 05/24/15 04/25/20 05/24/15 History Cinacalcet HCl [Sensipar] 60 mg PO DAILY 07/23/19 04/25/20 Unknown History Famotidine [Pepcid] 20 mg PO BID 07/23/19 04/25/20 Unknown History Sevelamer Carbonate [Renvela] 1,600 mg PO TID 07/23/19 04/25/20 Unknown History Vit B Complx C/Folic Acid/Zinc 1 tab PO DAILY 07/23/19 04/25/20 Unknown History [Dialyvite 800-Zinc 50 mg Tab] amLODIPine 10 mg PO DAILY 07/23/19 04/25/20 Unknown History cloNIDine [Catapres] 0.1 mg PO TID 07/23/19 04/25/20 Unknown History Pantoprazole [Protonix TAB] 40 mg PO BID #60 tablet 07/26/19 04/25/20 Unknown Rx Cyproheptadine [Periactin] 4 mg PO TID 09/01/19 04/25/20 Unknown History Metoprolol Tartrate [Lopressor] 100 mg PO QDAY 09/01/19 04/25/20 Unknown History Active Medications: Generic Name Dose Route Start Last Admin Trade Name Freq PRN Reason Stop Dose Admin Acetaminophen 650 mg 04/25/20 12:59 Tylenol PO Q4H PRN Pain MILD(1-3)/Fever >100.5/LAIRD Albuterol 2.5 mg 04/25/20 12:59 Proventil IH Q4HRT PRN Shortness Of Breath Amlodipine Besylate 10 mg 04/26/20 10:00 04/27/20 11:24 Amlodipine PO 10 mg DAILY DAVI Administration Cinacalcet 60 mg 04/26/20 10:00 04/27/20 11:52 Sensipar PO 60 mg DAILY DAVI Administration Clonidine HCl 0.1 mg 04/25/20 14:00 04/27/20 14:56 Catapres PO Not Given TID DAVI Dextrose 50 gm 04/25/20 10:28 D50w (25gm) Vial IV Q30MIN PRN Hypoglycemia Protocol Sodium Chloride 100 mls @ 999 mls/hr 04/26/20 11:23 Nacl 0.9% IV ALEXANDRA PRN Hypotension Lisinopril 20 mg 04/26/20 10:00 04/27/20 11:24 Zestril PO 20 mg QDAY DAVI Administration Metoprolol Tartrate 100 mg 04/26/20 10:00 04/27/20 11:23 Metoprolol PO 100 mg QDAY DAVI Administration Miscellaneous Medication 210 mg 04/25/20 14:00 04/25/20 20:01 Ferric Citrate (Nf) PO Not Given TID DAVI Ondansetron HCl 4 mg 04/25/20 12:59 Zofran IV Q8H PRN Nausea And Vomiting Pantoprazole Sodium 40 mg 04/25/20 22:00 04/27/20 11:23 Protonix PO 40 mg BID DAVI Administration Sevelamer Carbonate 1,600 mg 04/26/20 17:00 04/27/20 16:44 Renvela PO 1,600 mg TIDWM DAVI Administration Sodium Chloride 10 ml 04/25/20 22:00 04/27/20 11:28 Sodium Chloride Flush Syringe 10 Ml IV 10 ml BID DAVI Administration Sodium Chloride 10 ml 04/25/20 12:59 Sodium Chloride Flush Syringe 10 Ml IV PRN PRN LINE FLUSH Vitamin B Complex/Vitamin C 1 each 04/26/20 10:00 04/27/20 11:52 Allbee With C PO 1 each QDAY DAVI Administration
[2020-04-28 06:38] LABS: Calcium 7.5 mg/dL (8.4-10.2)
[2020-04-28] MEDS: SEVELAMER CARBONATE 800 MG TAB PO SCH ×3 (08:32→18:29)
[2020-04-28] MEDS: CINACALCET 30 MG TAB PO SCH ×2 (08:32→10:00)
[2020-04-28] MEDS: PANTOPRAZOLE 40 MG TAB PO SCH ×3 (08:32→22:00)
[2020-04-28] MEDS: B COMPLEX W/VITAMIN C TAB PO SCH ×2 (08:32→10:00)
[2020-04-28] MEDS: cloNIDine 0.1 MG TAB PO SCH ×3 (08:35→22:00)
--- NOTE | 2020-04-28 09:19 | Progress Note ---
Assessment and Plan --Acute metabolic encephalopathy Could be secondary to poor oral intake and dehydration CT head without any acute abnormality Continue to monitor with neuro check, seizure precautions, aspiration precautions, fall precautions, diet with assistance. -- Vascular dementia Supportive care, verbal prompting, verbal redirection, benzodiazepine therapy as clinically indicated -- End stage renal disease Nephrology team consulted in ED, dialysis as per renal team, strict I's/O, monitor urine output every shift, daily weight, avoid nephrotoxic agents. -- Hyponatremia, improved Supportive care, free water intake, -Moderate to severe protein calorie malnutrition Likely from underlying dementia and poor oral intake Started on supplemental nutrition with meal, dietary consult -- DVT prophylaxis SCD to bilateral lower extremities while in bed, prophylactic anticoagulation -- Advance care planning: patient is full code Disposition: patient more oriented today, updated by phone. Continue to monitor and provide supportive care. if clinically stable possible d/c tomorrow Subjective Date of service: 04/27/20 Interval history: Patient seen and examined Patient denies any chest pain or shortness of breath No acute event reported by RN patient is more oriented today but still appears lethargic updated by phone Objective - Exam Narrative Exam: GENERAL: Elderly -[place] male lying on bed appeared to be in no discomfort. HEENT: Normocephalic. Atraumatic. No conjunctival congestion or icterus. Patient has moist mucous membranes. NECK: Supple. Trachea midline. CHEST/LUNGS: Clear to auscultated bilaterally, breathing nonlabored. No wheezes crackles or rhonchi. HEART/CARDIOVASCULAR: Regular in rate and rhythm. S1 and S2 positive. ABDOMEN: Abdomen is soft, nontender. Patient has normal bowel sounds. SKIN: There is no rash. Warm and dry. NEURO: No focal motor deficit. Follows command. Patient only oriented to person and place MUSCULOSKELETAL: No joint effusion or tenderness. Generalized muscle wasting EXTRIMITY: No edema, no cyanosis or clubbing. PSYCH: Cooperative. - Constitutional Vitals: Vital Signs - 12hr 04/27/20 04/27/20 04/28/20 23:38 23:39 04:54 Temperature 97.2 F L Pulse Rate 74 71 76 Respiratory 18 Rate Blood Pressure 107/52 133/64 O2 Sat by Pulse 99 97 Oximetry 04/28/20 07:28 Temperature 98.6 F Pulse Rate 76 Respiratory 18 Rate Blood Pressure 118/44 O2 Sat by Pulse 97 Oximetry - Labs CBC & Chem 7: 04/26/20 04:00 04/28/20 05:33 Labs: Abnormal lab results 04/27/20 04/27/20 04/28/20 Range/Units 21:22 23:57 05:08 Sodium (137-145) mmol/L Chloride (98-107) mmol/L BUN (9-20) mg/dL Creatinine (0.8-1.3) mg/dL POC Glucose 130 H 134 H 109 H (70-105) mg/dL Calcium (8.4-10.2) mg/dL 04/28/20 Range/Units 05:33 Sodium 130 L (137-145) mmol/L Chloride 89.7 L (98-107) mmol/L BUN 27 H (9-20) mg/dL Creatinine 10.4 H (0.8-1.3) mg/dL POC Glucose (70-105) mg/dL Calcium 7.5 L (8.4-10.2) mg/dL
--- NOTE | 2020-04-28 11:34 | Progress Note ---
Assessment and Plan Impression * End stage renal disease * Acute encephalopathy - ?secondary to Periactin * Involuntary tremor/movement - resolved * COPD * Anemia secondary to ESRD * Secondary hyperparathyroidism Plan: * HD today - UF as tolerated * Continue TTS schedule - will increase outpatient HD treatment time to 3hours (verbal order given to outpatient dialysis clinic medical charge entry specialistDonna) * Continue to hold Periactin * Avoid narcotics * Dose medications for renal function * Avoid potential nephrotoxins * Contacted patient's via phone, Lexii Connell. Provided update. Subjective Date of service: 04/28/20 Interval history: Patient has no complaints this AM. Seen on dialysis. States he feels his thinking is more clear. Objective - Vital Signs Vital signs: Vital Signs - 12hr 04/27/20 04/27/20 04/28/20 23:38 23:39 04:54 Temperature 97.2 F L Pulse Rate 74 71 76 Respiratory 18 Rate Blood Pressure 107/52 133/64 O2 Sat by Pulse 99 97 Oximetry 04/28/20 04/28/20 04/28/20 07:28 08:55 09:00 Temperature 98.6 F 98.6 F Pulse Rate 76 78 72 Respiratory 18 18 Rate Blood Pressure 118/44 145/74 140/69 O2 Sat by Pulse 97 Oximetry 04/28/20 04/28/20 04/28/20 09:15 09:30 09:45 Temperature Pulse Rate 71 79 72 Respiratory Rate Blood Pressure 133/67 129/62 125/52 O2 Sat by Pulse Oximetry 04/28/20 04/28/20 04/28/20 10:00 10:15 10:30 Temperature Pulse Rate 73 72 83 Respiratory Rate Blood Pressure 125/63 119/52 106/59 O2 Sat by Pulse Oximetry 04/28/20 04/28/20 04/28/20 10:45 11:00 11:15 Temperature Pulse Rate 77 76 87 Respiratory Rate Blood Pressure 92/51 112/56 96/55 O2 Sat by Pulse Oximetry - General Appearance General appearance: well-developed, well-nourished EENT: ATNC Respiratory: Present: Clear to Ascultation Cardiology: regular, S1S2 Gastrointestinal: normal, no tenderness, no distended Integumentary: no rash, warm and dry Musculoskeletal: other (no edema) Psychiatric: cooperative - Lab 04/26/20 04:00 04/28/20 05:33 Most recent lab results Calcium 7.5 mg/dL (8.4-10.2) L 04/28/20 05:33 Magnesium 2.10 mg/dL (1.7-2.3) 04/25/20 11:15 Medications & Allergies - Medications Allergies/Adverse Reactions: Allergies No Known Allergies Allergy (Verified 07/14/19 11:18) Home Medications: Home Medications Medication Instructions Recorded Confirmed Last Taken Type lisinopriL [Zestril TAB] 20 mg PO QDAY 05/24/15 04/25/20 05/24/15 History Cinacalcet HCl [Sensipar] 60 mg PO DAILY 07/23/19 04/25/20 Unknown History Famotidine [Pepcid] 20 mg PO BID 07/23/19 04/25/20 Unknown History Sevelamer Carbonate [Renvela] 1,600 mg PO TID 07/23/19 04/25/20 Unknown History Vit B Complx C/Folic Acid/Zinc 1 tab PO DAILY 07/23/19 04/25/20 Unknown History [Dialyvite 800-Zinc 50 mg Tab] amLODIPine 10 mg PO DAILY 07/23/19 04/25/20 Unknown History cloNIDine [Catapres] 0.1 mg PO TID 07/23/19 04/25/20 Unknown History Pantoprazole [Protonix TAB] 40 mg PO BID #60 tablet 07/26/19 04/25/20 Unknown Rx Cyproheptadine [Periactin] 4 mg PO TID 09/01/19 04/25/20 Unknown History Metoprolol Tartrate [Lopressor] 100 mg PO QDAY 09/01/19 04/25/20 Unknown History Active Medications: Generic Name Dose Route Start Last Admin Trade Name Freq PRN Reason Stop Dose Admin Acetaminophen 650 mg 04/25/20 12:59 Tylenol PO Q4H PRN Pain MILD(1-3)/Fever >100.5/LAIRD Albuterol 2.5 mg 04/25/20 12:59 Proventil IH Q4HRT PRN Shortness Of Breath Amlodipine Besylate 10 mg 04/26/20 10:00 04/27/20 11:24 Amlodipine PO 10 mg DAILY DAVI Administration Cinacalcet 60 mg 04/26/20 10:00 04/28/20 08:32 Sensipar PO 60 mg DAILY DAVI Administration Clonidine HCl 0.1 mg 04/25/20 14:00 04/27/20 23:39 Catapres PO Not Given TID DAVI Dextrose 50 gm 04/25/20 10:28 D50w (25gm) Vial IV Q30MIN PRN Hypoglycemia Protocol Sodium Chloride 100 mls @ 999 mls/hr 04/26/20 11:23 Nacl 0.9% IV ALEXANDRA PRN Hypotension Lisinopril 20 mg 04/26/20 10:00 04/27/20 11:24 Zestril PO 20 mg QDAY DAVI Administration Metoprolol Tartrate 100 mg 04/26/20 10:00 04/27/20 11:23 Metoprolol PO 100 mg QDAY DAVI Administration Miscellaneous Medication 210 mg 04/25/20 14:00 04/25/20 20:01 Ferric Citrate (Nf) PO Not Given TID DAVI Ondansetron HCl 4 mg 04/25/20 12:59 Zofran IV Q8H PRN Nausea And Vomiting Pantoprazole Sodium 40 mg 04/25/20 22:00 04/28/20 08:32 Protonix PO 40 mg BID DAVI Administration Sevelamer Carbonate 1,600 mg 04/26/20 17:00 04/28/20 08:32 Renvela PO 1,600 mg TIDWM DAVI Administration Sodium Chloride 10 ml 04/25/20 22:00 04/27/20 23:34 Sodium Chloride Flush Syringe 10 Ml IV 10 ml BID DAVI Administration Sodium Chloride 10 ml 04/25/20 12:59 Sodium Chloride Flush Syringe 10 Ml IV PRN PRN LINE FLUSH Vitamin B Complex/Vitamin C 1 each 04/26/20 10:00 04/28/20 08:32 Allbee With C PO 1 each QDAY DAVI Administration
[2020-04-28] MEDS: LISINOPRIL 20 MG TAB PO SCH (13:00)
[2020-04-28] MEDS: METOPROLOL TARTRATE 100 MG TAB PO SCH (13:00)
[2020-04-28] MEDS: amLODIPine 10 MG TAB PO SCH (13:20)
--- NOTE | 2020-04-28 13:54 | Progress Note ---
Assessment and Plan --Acute metabolic encephalopathy Could be secondary to poor oral intake and dehydration CT head without any acute abnormality Continue to monitor with neuro check, seizure precautions, aspiration precautions, fall precautions, diet with assistance. -- Vascular dementia Supportive care, verbal prompting, verbal redirection, benzodiazepine therapy as clinically indicated -- End stage renal disease Nephrology team consulted in ED, dialysis as per renal team, strict I's/O, monitor urine output every shift, daily weight, avoid nephrotoxic agents. -- Hyponatremia syndrome Supportive care, free water intake, -Moderate to severe protein calorie malnutrition Likely from underlying dementia and poor oral intake Started on supplemental nutrition with meal, dietary consult -- DVT prophylaxis SCD to bilateral lower extremities while in bed, prophylactic anticoagulation -- Advance care planning: patient is full code Disposition: PT did not clear the patient. Continue to monitor and provide supportive care. disposition pending PT clearance Subjective Date of service: 04/28/20 Interval history: Patient seen and examined Patient denies any chest pain or shortness of breath No acute event reported by RN patient is still appears lethargic PT has not cleared the patient Objective - Exam Narrative Exam: GENERAL: Elderly -[place] male lying on bed appeared to be in no discomfort. HEENT: Normocephalic. Atraumatic. No conjunctival congestion or icterus. Patient has moist mucous membranes. NECK: Supple. Trachea midline. CHEST/LUNGS: Clear to auscultated bilaterally, breathing nonlabored. No wheezes crackles or rhonchi. HEART/CARDIOVASCULAR: Regular in rate and rhythm. S1 and S2 positive. ABDOMEN: Abdomen is soft, nontender. Patient has normal bowel sounds. SKIN: There is no rash. Warm and dry. NEURO: No focal motor deficit. Follows command. Patient only oriented to person and place MUSCULOSKELETAL: No joint effusion or tenderness. Generalized muscle wasting EXTRIMITY: No edema, no cyanosis or clubbing. PSYCH: Cooperative. - Constitutional Vitals: Vital Signs - 12hr 04/28/20 04/28/20 04/28/20 04:54 07:28 08:55 Temperature 97.2 F L 98.6 F 98.6 F Pulse Rate 76 76 78 Respiratory 18 18 18 Rate Blood Pressure 133/64 118/44 145/74 O2 Sat by Pulse 97 97 Oximetry 04/28/20 04/28/20 04/28/20 09:00 09:15 09:30 Temperature Pulse Rate 72 71 79 Respiratory Rate Blood Pressure 140/69 133/67 129/62 O2 Sat by Pulse Oximetry 04/28/20 04/28/20 04/28/20 09:45 10:00 10:15 Temperature Pulse Rate 72 73 72 Respiratory Rate Blood Pressure 125/52 125/63 119/52 O2 Sat by Pulse Oximetry 04/28/20 04/28/20 04/28/20 10:30 10:45 11:00 Temperature Pulse Rate 83 77 76 Respiratory Rate Blood Pressure 106/59 92/51 112/56 O2 Sat by Pulse Oximetry 04/28/20 04/28/20 04/28/20 11:15 11:30 11:45 Temperature Pulse Rate 87 86 86 Respiratory Rate Blood Pressure 96/55 95/49 95/55 O2 Sat by Pulse Oximetry 04/28/20 04/28/20 04/28/20 11:50 12:59 13:00 Temperature Pulse Rate 76 76 46 L Respiratory 18 Rate Blood Pressure 121/66 121/66 121/76 O2 Sat by Pulse Oximetry 04/28/20 13:20 Temperature Pulse Rate 76 Respiratory Rate Blood Pressure 121/66 O2 Sat by Pulse Oximetry - Labs CBC & Chem 7: 04/26/20 04:00 04/28/20 05:33 Labs: Abnormal lab results 04/27/20 04/27/20 04/28/20 Range/Units 21:22 23:57 05:08 Sodium (137-145) mmol/L Chloride (98-107) mmol/L BUN (9-20) mg/dL Creatinine (0.8-1.3) mg/dL POC Glucose 130 H 134 H 109 H (70-105) mg/dL Calcium (8.4-10.2) mg/dL 04/28/20 Range/Units 05:33 Sodium 130 L (137-145) mmol/L Chloride 89.7 L (98-107) mmol/L BUN 27 H (9-20) mg/dL Creatinine 10.4 H (0.8-1.3) mg/dL POC Glucose (70-105) mg/dL Calcium 7.5 L (8.4-10.2) mg/dL
[2020-04-29] MEDS: B COMPLEX W/VITAMIN C TAB PO SCH (09:43)
[2020-04-29] MEDS: SEVELAMER CARBONATE 800 MG TAB PO SCH ×3 (09:43→16:21)
[2020-04-29] MEDS: PANTOPRAZOLE 40 MG TAB PO SCH ×2 (09:43→21:47)
[2020-04-29] MEDS: CINACALCET 30 MG TAB PO SCH (09:43)
[2020-04-29] MEDS: METOPROLOL TARTRATE 100 MG TAB PO SCH (09:44)
[2020-04-29] MEDS: LISINOPRIL 20 MG TAB PO SCH (09:44)
[2020-04-29] MEDS: amLODIPine 10 MG TAB PO SCH (09:44)
[2020-04-29] MEDS: cloNIDine 0.1 MG TAB PO SCH (09:45)
--- NOTE | 2020-04-29 14:50 | Progress Note ---
Assessment and Plan Impression * End stage renal disease * Acute encephalopathy - ?secondary to Periactin * Involuntary tremor/movement - resolved * COPD * Anemia secondary to ESRD * Secondary hyperparathyroidism Plan: * No acute need for HD today * Continue TTS schedule - outpatient HD treatment time increased to 3hours (verbal order given to outpatient dialysis clinic charge account identification clerkDonna MAIN) * Continue to hold Periactin * Avoid narcotics * Dose medications for renal function * Avoid potential nephrotoxins Subjective Date of service: 04/29/20 Interval history: Patient has no complaints Objective - Vital Signs Vital signs: Vital Signs - 12hr 04/29/20 04/29/20 04/29/20 04:28 07:31 09:44 Temperature 97.8 F 98.2 F Pulse Rate 78 81 81 Respiratory 20 18 Rate Blood Pressure 133/66 122/66 122/66 O2 Sat by Pulse 100 97 Oximetry 04/29/20 04/29/20 09:45 11:01 Temperature 97.9 F Pulse Rate 81 79 Respiratory 18 Rate Blood Pressure 122/66 84/48 O2 Sat by Pulse 93 Oximetry - General Appearance General appearance: well-developed, well-nourished EENT: ATNC Respiratory: Present: Clear to Ascultation Cardiology: regular, S1S2 Gastrointestinal: normal, no tenderness, no distended Integumentary: no rash, warm and dry Neurologic: no asterixis Psychiatric: cooperative - Lab 04/26/20 04:00 04/28/20 05:33 Most recent lab results Calcium 7.5 mg/dL (8.4-10.2) L 04/28/20 05:33 Magnesium 2.10 mg/dL (1.7-2.3) 04/25/20 11:15 Medications & Allergies - Medications Allergies/Adverse Reactions: Allergies No Known Allergies Allergy (Verified 07/14/19 11:18) Home Medications: Home Medications Medication Instructions Recorded Confirmed Last Taken Type lisinopriL [Zestril TAB] 20 mg PO QDAY 05/24/15 04/25/20 05/24/15 History Cinacalcet HCl [Sensipar] 60 mg PO DAILY 07/23/19 04/25/20 Unknown History Famotidine [Pepcid] 20 mg PO BID 07/23/19 04/25/20 Unknown History Sevelamer Carbonate [Renvela] 1,600 mg PO TID 07/23/19 04/25/20 Unknown History Vit B Complx C/Folic Acid/Zinc 1 tab PO DAILY 07/23/19 04/25/20 Unknown History [Dialyvite 800-Zinc 50 mg Tab] amLODIPine 10 mg PO DAILY 07/23/19 04/25/20 Unknown History cloNIDine [Catapres] 0.1 mg PO TID 07/23/19 04/25/20 Unknown History Pantoprazole [Protonix TAB] 40 mg PO BID #60 tablet 07/26/19 04/25/20 Unknown Rx Cyproheptadine [Periactin] 4 mg PO TID 09/01/19 04/25/20 Unknown History Metoprolol Tartrate [Lopressor] 100 mg PO QDAY 09/01/19 04/25/20 Unknown History Active Medications: Generic Name Dose Route Start Last Admin Trade Name Freq PRN Reason Stop Dose Admin Acetaminophen 650 mg 04/25/20 12:59 Tylenol PO Q4H PRN Pain MILD(1-3)/Fever >100.5/LAIRD Albuterol 2.5 mg 04/25/20 12:59 Proventil IH Q4HRT PRN Shortness Of Breath Amlodipine Besylate 10 mg 04/26/20 10:00 04/29/20 09:44 Amlodipine PO 10 mg DAILY DAVI Administration Cinacalcet 60 mg 04/26/20 10:00 04/29/20 09:43 Sensipar PO 60 mg DAILY DAVI Administration Dextrose 50 gm 04/25/20 10:28 D50w (25gm) Vial IV Q30MIN PRN Hypoglycemia Protocol Sodium Chloride 100 mls @ 999 mls/hr 04/26/20 11:23 Nacl 0.9% IV ALEXANDRA PRN Hypotension Miscellaneous Medication 210 mg 04/25/20 14:00 04/25/20 20:01 Ferric Citrate (Nf) PO Not Given TID DAVI Ondansetron HCl 4 mg 04/25/20 12:59 Zofran IV Q8H PRN Nausea And Vomiting Pantoprazole Sodium 40 mg 04/25/20 22:00 04/29/20 09:43 Protonix PO 40 mg BID DAVI Administration Sevelamer Carbonate 1,600 mg 04/26/20 17:00 04/29/20 12:35 Renvela PO 1,600 mg TIDWM DAVI Administration Sodium Chloride 10 ml 04/25/20 22:00 04/29/20 09:48 Sodium Chloride Flush Syringe 10 Ml IV 10 ml BID DAVI Administration Sodium Chloride 10 ml 04/25/20 12:59 Sodium Chloride Flush Syringe 10 Ml IV PRN PRN LINE FLUSH Vitamin B Complex/Vitamin C 1 each 04/26/20 10:00 04/29/20 09:43 Allbee With C PO 1 each QDAY DAVI Administration
--- NOTE | 2020-04-29 17:51 | Progress Note ---
Assessment and Plan --Acute metabolic encephalopathy Could be secondary to poor oral intake and dehydration CT head without any acute abnormality Continue to monitor with neuro check, seizure precautions, aspiration precautions, fall precautions, diet with assistance. -- Vascular dementia Supportive care, verbal prompting, verbal redirection, benzodiazepine therapy as clinically indicated -- End stage renal disease Nephrology team consulted in ED, dialysis as per renal team, strict I's/O, monitor urine output every shift, daily weight, avoid nephrotoxic agents. -- Hyponatremia syndrome Supportive care, free water intake, -Moderate to severe protein calorie malnutrition Likely from underlying dementia and poor oral intake Started on supplemental nutrition with meal, dietary consult --hypotension, hold BP meds, cont to monitor -- DVT prophylaxis SCD to bilateral lower extremities while in bed, prophylactic anticoagulation -- Advance care planning: patient is full code Disposition: PT did not clear the patient. BP dropped to low 80s, hold BP meds. disposition pending PT clearance Subjective Date of service: 04/29/20 Interval history: Patient seen and examined Patient denies any chest pain or shortness of breath No acute event reported by RN patient is resting on bed, no acute issue BP dropped to low 80s today Objective - Exam Narrative Exam: GENERAL: Elderly -[place] male lying on bed appeared to be in no discomfort. HEENT: Normocephalic. Atraumatic. No conjunctival congestion or icterus. Patient has moist mucous membranes. NECK: Supple. Trachea midline. CHEST/LUNGS: Clear to auscultated bilaterally, breathing nonlabored. No wheezes crackles or rhonchi. HEART/CARDIOVASCULAR: Regular in rate and rhythm. S1 and S2 positive. ABDOMEN: Abdomen is soft, nontender. Patient has normal bowel sounds. SKIN: There is no rash. Warm and dry. NEURO: No focal motor deficit. Follows command. Patient only oriented to person and place MUSCULOSKELETAL: No joint effusion or tenderness. Generalized muscle wasting EXTRIMITY: No edema, no cyanosis or clubbing. PSYCH: Cooperative. - Constitutional Vitals: Vital Signs - 12hr 04/29/20 04/29/20 04/29/20 07:31 09:44 09:45 Temperature 98.2 F Pulse Rate 81 81 81 Respiratory 18 Rate Blood Pressure 122/66 122/66 122/66 O2 Sat by Pulse 97 Oximetry 04/29/20 04/29/20 11:01 16:12 Temperature 97.9 F 98.4 F Pulse Rate 79 73 Respiratory 18 18 Rate Blood Pressure 84/48 99/45 O2 Sat by Pulse 93 93 Oximetry - Labs CBC & Chem 7: 04/26/20 04:00 04/28/20 05:33 Labs: Abnormal lab results 04/29/20 04/29/20 Range/Units 00:09 16:40 POC Glucose 108 H 112 H (70-105) mg/dL
[2020-04-30] MEDS: SEVELAMER CARBONATE 800 MG TAB PO SCH ×2 (08:48→11:13)
--- NOTE | 2020-04-30 10:21 | Progress Note ---
Assessment and Plan Impression * End stage renal disease * Acute encephalopathy - ?secondary to Periactin * hyponatremia * Involuntary tremor/movement - resolved * COPD * Anemia secondary to ESRD * Secondary hyperparathyroidism Plan: * No acute need for HD today * Continue TTS schedule - outpatient HD treatment time increased to 3hours (verbal order given to outpatient dialysis clinic lithopone chargerDonna MAIN) * Continue to hold Periactin * Avoid narcotics * NA noted, will follow up * Dose medications for renal function * Avoid potential nephrotoxins Subjective Date of service: 04/30/20 Principal diagnosis: AMS, ESRD Interval history: resting well in bed today Objective - Exam Narrative Exam: General appearance: well-developed, well-nourished EENT: ATNC Respiratory: Present: Clear to Ascultation Cardiology: regular, S1S2 Gastrointestinal: normal, no tenderness, no distended Integumentary: no rash, warm and dry Neurologic: no asterixis Psychiatric: cooperative - Vital Signs Vital signs: Vital Signs - 12hr 04/29/20 04/30/20 04/30/20 23:45 04:46 08:03 Temperature 97.6 F 97.5 F L 98.3 F Pulse Rate 75 64 57 L Respiratory 18 18 24 Rate Blood Pressure 124/57 110/46 124/62 O2 Sat by Pulse 95 99 98 Oximetry - Lab 04/26/20 04:00 04/28/20 05:33 Most recent lab results Calcium 7.5 mg/dL (8.4-10.2) L 04/28/20 05:33 Magnesium 2.10 mg/dL (1.7-2.3) 04/25/20 11:15 Medications & Allergies - Medications Allergies/Adverse Reactions: Allergies No Known Allergies Allergy (Verified 07/14/19 11:18) Home Medications: Home Medications Medication Instructions Recorded Confirmed Last Taken Type lisinopriL [Zestril TAB] 20 mg PO QDAY 05/24/15 04/25/20 05/24/15 History Cinacalcet HCl [Sensipar] 60 mg PO DAILY 07/23/19 04/25/20 Unknown History Famotidine [Pepcid] 20 mg PO BID 07/23/19 04/25/20 Unknown History Sevelamer Carbonate [Renvela] 1,600 mg PO TID 07/23/19 04/25/20 Unknown History Vit B Complx C/Folic Acid/Zinc 1 tab PO DAILY 07/23/19 04/25/20 Unknown History [Dialyvite 800-Zinc 50 mg Tab] amLODIPine 10 mg PO DAILY 07/23/19 04/25/20 Unknown History cloNIDine [Catapres] 0.1 mg PO TID 07/23/19 04/25/20 Unknown History Pantoprazole [Protonix TAB] 40 mg PO BID #60 tablet 07/26/19 04/25/20 Unknown Rx Cyproheptadine [Periactin] 4 mg PO TID 09/01/19 04/25/20 Unknown History Metoprolol Tartrate [Lopressor] 100 mg PO QDAY 09/01/19 04/25/20 Unknown History Active Medications: Generic Name Dose Route Start Last Admin Trade Name Freq PRN Reason Stop Dose Admin Acetaminophen 650 mg 04/25/20 12:59 Tylenol PO Q4H PRN Pain MILD(1-3)/Fever >100.5/LAIRD Albuterol 2.5 mg 04/25/20 12:59 Proventil IH Q4HRT PRN Shortness Of Breath Amlodipine Besylate 10 mg 04/26/20 10:00 04/29/20 09:44 Amlodipine PO 10 mg DAILY DAVI Administration Cinacalcet 60 mg 04/26/20 10:00 04/29/20 09:43 Sensipar PO 60 mg DAILY DAVI Administration Dextrose 50 gm 04/25/20 10:28 D50w (25gm) Vial IV Q30MIN PRN Hypoglycemia Protocol Sodium Chloride 100 mls @ 999 mls/hr 04/26/20 11:23 Nacl 0.9% IV ALEXANDRA PRN Hypotension Miscellaneous Medication 210 mg 04/25/20 14:00 04/25/20 20:01 Ferric Citrate (Nf) PO Not Given TID DAVI Ondansetron HCl 4 mg 04/25/20 12:59 Zofran IV Q8H PRN Nausea And Vomiting Pantoprazole Sodium 40 mg 04/25/20 22:00 04/29/20 21:47 Protonix PO 40 mg BID DAVI Administration Sevelamer Carbonate 1,600 mg 04/26/20 17:00 04/30/20 08:48 Renvela PO 1,600 mg TIDWM DAVI Administration Sodium Chloride 10 ml 04/25/20 22:00 04/29/20 21:51 Sodium Chloride Flush Syringe 10 Ml IV 10 ml BID DAVI Administration Sodium Chloride 10 ml 04/25/20 12:59 Sodium Chloride Flush Syringe 10 Ml IV PRN PRN LINE FLUSH Vitamin B Complex/Vitamin C 1 each 04/26/20 10:00 04/29/20 09:43 Allbee With C PO 1 each QDAY DAVI Administration
[2020-04-30] MEDS: B COMPLEX W/VITAMIN C TAB PO SCH (11:08)
[2020-04-30] MEDS: CINACALCET 30 MG TAB PO SCH (11:08)
[2020-04-30] MEDS: PANTOPRAZOLE 40 MG TAB PO SCH (11:09)
[2020-04-30] MEDS: amLODIPine 10 MG TAB PO SCH (11:09)
--- NOTE | 2020-04-30 11:47 | Discharge Summary ---
Providers - Providers Date of Admission: 04/27/20 08:00 Date of discharge: 04/30/20 Attending physician: LANEY OVALLES 04/25/20 10:14 Consult to Physician [CONS] Urgent Comment: Consulting Provider: RODRI GARCIA Physician Instructions: Reason For Exam: esrd 04/26/20 08:08 Physical Therapy Evaluation and Treat [CONS] Routine Comment: Reason For Exam: general weakness, weak grasp, unstable gait 04/30/20 08:22 Consult to Dietitian/Nutrition [CONS] Routine Physician Instructions: Reason For Exam: Reason for Consult: Malnutrition Primary care physician: SILVERWARE BUFFER Hospitalization Condition: Fair Hospital course: Discharge diagnosis: --Acute metabolic encephalopathy Could be secondary to poor oral intake and dehydration CT head without any acute abnormality Continue to monitor with neuro check, seizure precautions, aspiration precautions, fall precautions, diet with assistance. -- Vascular dementia Supportive care, verbal prompting, verbal redirection, benzodiazepine therapy as clinically indicated -- End stage renal disease Nephrology team consulted in ED, dialysis as per renal team, strict I's/O, monitor urine output every shift, daily weight, avoid nephrotoxic agents. -- Hyponatremia syndrome Supportive care, free water intake, -Moderate to severe protein calorie malnutrition Likely from underlying dementia and poor oral intake Started on supplemental nutrition with meal, dietary consult --hypotension, hold BP meds, cont to monitor -- DVT prophylaxis SCD to bilateral lower extremities while in bed, prophylactic anticoagulation -- Advance care planning: patient is full code Disposition: [id number] HOME UNDER HOME [facility] Time spent for discharge: 34 minutes Core Measure Documentation - Palliative Care Palliative Care/ Comfort Measures: Not Applicable - Core Measures Any of the following diagnoses?: none Exam - Physical Exam Narrative exam: GENERAL: Elderly -Stateless male lying on bed appeared to be in no discomfort. HEENT: Normocephalic. Atraumatic. No conjunctival congestion or icterus. Patient has moist mucous membranes. NECK: Supple. Trachea midline. CHEST/LUNGS: Clear to auscultated bilaterally, breathing nonlabored. No wheezes crackles or rhonchi. HEART/CARDIOVASCULAR: Regular in rate and rhythm. S1 and S2 positive. ABDOMEN: Abdomen is soft, nontender. Patient has normal bowel sounds. SKIN: There is no rash. Warm and dry. NEURO: No focal motor deficit. Follows command. Patient only oriented to person and place MUSCULOSKELETAL: No joint effusion or tenderness. Generalized muscle wasting EXTRIMITY: No edema, no cyanosis or clubbing. PSYCH: Cooperative. - Constitutional Vitals: Temp Pulse Resp BP Pulse Ox 98.3 F 57 L 24 124/62 98 04/30/20 08:03 04/30/20 11:09 04/30/20 08:03 04/30/20 11:09 04/30/20 08:03 Plan Activity: advance as tolerated, fall precautions Weight Bearing Status: Non-Weight Bearing Diet: renal Special Instructions: restrict fluid intake to (1.2L per day), record daily BP diary Follow up with: PRIMARY CARE, [Primary Care Provider] - 3-5 Days
[2020-04-30 16:13] VITALS: BP 134/63
== END 2020-04-30 17:30 | disposition home or self-care (01) | DRG 70 ==
LOC: ED 08:52 → 3A 12:59 → 3B-SURG 20:31 → OBSVTOIN 04-27 08:00
PROVIDERS: ADMIT Internal Medicine; ATTEND Internal Medicine
PROC: 5A1D70Z Performance of Urinary Filtration, Intermittent, Less than 6 Hours Per Day (ICD-10-PCS; principal; 2020-04-26)
PROC: 5A1D70Z Performance of Urinary Filtration, Intermittent, Less than 6 Hours Per Day (ICD-10-PCS; 2020-04-28)
DX: G93.41 Metabolic encephalopathy (principal); N18.6 End stage renal disease; E43 Unspecified severe protein-calorie malnutrition; E87.1 Hypo-osmolality and hyponatremia; I13.0 Hypertensive heart and chronic kidney disease with heart failure and stage 1 through stage 4 chronic kidney disease, or unspecified chronic kidney disease; J96.10 Chronic respiratory failure, unspecified whether with hypoxia or hypercapnia; N25.81 Secondary hyperparathyroidism of renal origin; Z68.1 Body mass index [BMI] 19.9 or less, adult; E86.0 Dehydration; F01.50 Vascular dementia, unspecified severity, without behavioral disturbance, psychotic disturbance, mood disturbance, and anxiety; Z20.828 Contact with and (suspected) exposure to other viral communicable diseases; J44.9 Chronic obstructive pulmonary disease, unspecified; M19.90 Unspecified osteoarthritis, unspecified site; D63.1 Anemia in chronic kidney disease; I95.9 Hypotension, unspecified; E11.649 Type 2 diabetes mellitus with hypoglycemia without coma; E11.22 Type 2 diabetes mellitus with diabetic chronic kidney disease; I50.9 Heart failure, unspecified; I25.2 Old myocardial infarction; Z99.2 Dependence on renal dialysis; Z99.81 Dependence on supplemental oxygen
CPT/HCPCS: 36415; 70450; 71045; 80048; 80053; 80074; 80320; 82140; 82550; 82607; 82962; 83735; 84443; 85007; 85025; 85610; 85730; 87040; 93005; 99283; G0378; G0480; U0003